=== PATIENT | female | born 1955 | race Caucasian/White ===

== ENCOUNTER → 2024-02-04 | Outpatient (CLI) | payer MEDICARE, MEDICAID, SELFPAY ==
--- NOTE | 2024-02-04 15:23 | RAD_ITS ---
EXAM: XR LUMBOSACRAL SPINE, 2 OR 3 VIEWS CLINICAL INDICATION: HIP PAIN TECHNIQUE: Frontal and lateral views of the lumbar spine and sacrum. COMPARISON: No relevant prior studies available. FINDINGS: VERTEBRAE: There is osteophyte formation from L3 through L5. Preserved vertebral body height. No fracture. No spondylolisthesis. Preservation of the normal lumbar lordosis. No significant facet arthropathy. DISC SPACES: There is disc space narrowing at L4-5 and L5-S1. GASTROINTESTINAL TRACT: Unremarkable as visualized. Included bowel gas pattern is non-obstructive. OTHER FINDINGS: There are calcifications overlying the pelvis which may represent calcified fibroids. RAD/Lumbar Spine 2 or 3 Views IMPRESSION: 1. No acute osseous abnormalities. 2. Degenerative changes with disc space narrowing and osteophyte formation. Electronically Signed: Ozzie Caceres MD at 20:39 EDT ,
--- NOTE | 2024-02-04 15:23 | RAD_ITS ---
EXAM: XR LEFT KNEE COMPLETE, 4 OR MORE VIEWS CLINICAL INDICATION: LEFT KNEE PAIN TECHNIQUE: Four or more views of the left knee. COMPARISON: No relevant prior studies available. FINDINGS: BONES/JOINTS: There is loss of the medial knee joint space. No acute fracture. No subluxation. Normal alignment. No sclerotic or destructive changes observed. SOFT TISSUES: Soft tissues are unremarkable. No soft tissue swelling or gas. No radiopaque foreign body. RAD/Knee 4 or More Views IMPRESSION: Moderate to severe degenerative changes with narrowing of the medial knee joint. There are no acute osseous abnormalities. Electronically Signed: Ozzie Caceres MD at 16:14 EDT ,
--- NOTE | 2024-02-04 15:23 | RAD_ITS ---
EXAM: XR BILATERAL HIPS WITH PELVIS WHEN PERFORMED, 2 VIEWS CLINICAL INDICATION: HIP PAIN TECHNIQUE: Frontal view of the bilateral hips with pelvis when performed. COMPARISON: No relevant prior studies available. FINDINGS: BONES/JOINTS: Unremarkable. No displaced fracture. No destructive or sclerotic lesions. Note that overlapping bowel shadows may however obscure fine detail. Sacroiliac joint is unremarkable. No widening of the pubic symphysis. The articular structures are unremarkable. SOFT TISSUES: Unremarkable. No soft tissue swelling or gas. RAD/Hips B/L min 2 views w/ Pelvis IMPRESSION: No evidence of displaced pelvic or hip fracture. Electronically Signed: Ozzie Caceres MD at 20:40 EDT ,
== END | disposition home or self-care (01) ==
PROVIDERS: PCP Family Medicine; Referring Provider Family Medicine; Visit Provider Family Medicine
DX: M25.562 Pain in left knee (principal); M25.551 Pain in right hip; M25.552 Pain in left hip
CPT/HCPCS: 72100; 73521; 73564

== ENCOUNTER 2025-08-31 00:57 | Inpatient (IN) | payer MEDICARE, SELFPAY ==
[2025-08-30] MEDS: HEPARIN/D5w 25,000 UNITS 25,000 UNITS/250 ML IV.SOLN. 10 UNITS CONT INF (23:30)
[2025-08-30 23:45] VITALS: BP 144/79; PULSE 69; RESP 18; TEMP 36.6; O2SAT 100; BMI 35.9
[2025-08-31] VITALS: O2SAT 100
--- NOTE | 2025-08-31 00:37 | EKG12_ITS ---
Test Reason : admission EKG
--- NOTE | 2025-08-31 01:00 | PCM.HP.STD ---
[facility] - General General Date of Admission: 08/31/25 HPI Narrative IRVIN HAMILTON, is a 70 F who presents went outside hospital with chest pain. She had initial troponin of 78 that anderson to 200. She does have a history of A-fib but is rate controlled. The chest pain is exertional with radiation to her jaw and she has an old him manager that she has not seen in a while and she requested to be transferred to this hospital. She states that her jaw pain intermittently started a couple months ago and then her chest pain started with a month ago. The reason why she presented to the outside hospital today was because usually whenever she would rest the chest pain would get better however this time it did not for at least an hour until she mated to the emergency room. When the chest pain started this time it also brought on the jaw pain and a little bit of arm pain. EKG showed nonspecific changes and her heart rate at the outside hospital was 94 bpm while in A-fib. She is on anticoagulation, this does appear to be Xarelto and her last dose was on 08/30/2025 at around 6 PM. She was started on a heparin drip and accepted to this facility and transferred. [facility] Medical History (Updated 08/31/25 @ 01:[address] Amaury Madsen MD) Hernia Disease of appendix, unspecified Peripheral arterial disease Gall stones Diabetes Osteoarthritis Atrial fibrillation Polycystic kidney disease Hypertension Thrombosis History of nephrolithotomy with removal of calculi Stroke Physical exam, pre-employment Home Medications ?Medication ?Instructions ?Recorded ?Last Taken ?Type Bacillus coagulans 250 million 2 tab PO .Q24 02/21/24 08/30/25 History cell chewable tablet (Digestive Advantage Probiotic Gummy) allopurinol 100 mg tablet 100 mg PO QDAY 02/21/24 08/30/25 History aspirin 81 mg tablet 81 mg PO DAILY 02/21/24 08/30/25 18:00 History cranberry 500 mg capsule 500 mg PO DAILY 02/21/24 08/29/25 18:00 History hydrochlorothiazide 25 mg tablet 25 mg PO QDAY 02/21/24 08/30/25 18:00 History losartan 100 mg tablet 50 mg PO QDAY 02/21/24 08/30/25 18:00 History atenolol 25 mg tablet 25 mg PO Q24H 08/30/25 08/30/25 18:00 History rivaroxaban 15 mg tablet (Xarelto) 15 mg PO DAILY 08/30/25 Unknown History Allergy/AdvReac Type Severity Reaction Status Date / Time No Known Allergies Allergy Unverified 02/21/24 14:11 Family History (Updated 02/21/24 @ 14:19 by Zulay Bustillos MA) Mother Hypertension Father Hypertension Arthritis Myocardial infarction Surgical History (Updated 08/31/25 @ 02:[address] Amaury Madsen MD) H/O lithotripsy Social History (Updated 02/21/24 @ 14:18 by Zulay Bustillos MA) household members: spouse Smoking Status: Never smoker alcohol intake: never ROS Constitutional Constitutional: Denies chills, fatigue, fever(s) or malaise Eyes Eyes: Denies blurry vision ENT HEENT: Denies headache(s) or nasal discharge Cardiovascular Cardiovascular: Reports chest pain; Denies dyspnea on exertion or syncope Respiratory/Chest Respiratory/Chest: Denies cough, shortness of breath at rest or shortness of breath with exertion Gastrointestinal Gastrointestinal: Denies constipation, diarrhea, nausea or vomiting Genitourinary Genitourinary: Denies dysuria Neurologic Neurologic: Denies focal weakness, numbness or tremor(s) Psychiatric Psychiatric: Denies anxiety or depression Vital Signs Vital Signs Vital Signs: 08/30/25 23:45 08/31/25 00:00 Temperature 97.9 F Temperature Source Oral Pulse Rate 69 Respiratory Rate 18 Respiratory Effort Normal Non-Labored Respiratory Depth Normal Respiratory Pattern Normal Blood Pressure 144/79 H Blood Pressure Mean 100 Blood Pressure Source Monitor Blood Pressure Position Sitting Blood Pressure Location Right Forearm Pulse Ox 100 100 Oxygen Delivery Method Room Air Room Air Weight Weight: 215 lb 9.793 oz Body Mass Index (BMI) 35.9 Physical Exam Narrative General: Alert, Oriented x3, Cooperative, No apparent distress HEENT: Atraumatic, PERRLA, EOMI, Normocephalic Oral: Moist Mucosa Neck: Supple, No JVD Lungs: Diminished, Normal air movement, No rhonchi, No wheeze, No rales Cardiovascular: Regular rate, Regular Rhythm, Normal S1, Normal S2, No murmurs Abdomen: Soft, Non Tender, Non-Distended, No Hepato-splenomegaly Extremities: No edema, Capillary Refill Less than 3 Seconds Skin: No rashes, No breakdown Musculoskeletal: No Tenderness to Palpation of Joints or Extremities Neurological: No focal neurological deficits, moves all extremities Psych/Mental Status: Normal Affect, Appropriate Results Lab / Micro Data 08/31/25 01:32 Assessment & Plan Assessment/Plan (1) NSTEMI, initial episode of care: PLAN: Plan 1. Non-STEMI/essential HTN/A-fib ? Can resume her home blood pressure medications, her third troponin here at this facility was 349 ? Continue with aspirin ? Placed on a heparin drip ? I did discuss the case with cardiology they will see her in the morning the plan for heart cath in the afternoon ? Hold her Xarelto 2. Gout ? Stable ? Continue with allopurinol 3. Supratherapeutic INR ? Unclear as to the etiology is 3.1 ? Will obtain LFTs DVT: Heparin drip 75 minutes was spent on direct patient care, including documentation as well as chart review and collaboration with colleagues Charges/Coding Visit Charges Inpatient E&M: 45590 Init Hosp L3
[2025-08-31 01:44] LABS: Hematocrit 34.8 % (37-47); Hemoglobin 11.5 g/dL (12.0-15.0); Immature Granulocytes Count 0.040 X10^3/uL (0.0-0.0); Mean Corp Hgb Conc 33.0 g/dL (32-36); Mean Corpuscular Volume 88.5 fL (81-99); Mean Platelet Vol. 10.5 fl (6.2-12.0); NRBC Flagged by Analyzer 0 % (0-5); Platelet Count 256 K/mm3 (150-450); RBC Distribution Width CV 12.9 % (11.6-14.6); RBC Distribution Width SD 42.0 fl (35.1-43.9); Red Blood Count 3.93 M/mm3 (4.2-5.4); White Blood Count 10.3 K/mm3 (4.4-11.0)
[2025-08-31 02:03] LABS: Prothrombin Time (Protime)PT. 32.5 SECONDS (11.7-14.9)
[2025-08-31 02:26] LABS: Troponin T High Sensitivity 349 ng/L (<=14)
[2025-08-31 02:34] LABS: Partial Thromboplast Time > 200.0 Seconds (24.1-36.2)
[2025-08-31 04:45] LABS: Hematocrit 34.9 % (37-47); Hemoglobin 11.5 g/dL (12.0-15.0); Immature Granulocytes Count 0.030 X10^3/uL (0.0-0.0); Mean Corp Hgb Conc 33.0 g/dL (32-36); Mean Corpuscular Volume 88.1 fL (81-99); Mean Platelet Vol. 11.0 fl (6.2-12.0); NRBC Flagged by Analyzer 0 % (0-5); Platelet Count 244 K/mm3 (150-450); RBC Distribution Width CV 12.8 % (11.6-14.6); RBC Distribution Width SD 41.4 fl (35.1-43.9); Red Blood Count 3.96 M/mm3 (4.2-5.4); White Blood Count 8.7 K/mm3 (4.4-11.0)
[2025-08-31 05:05] LABS: AST(SGOT) 48 U/L (<=31); Alanine Aminotransfer ALT/SGPT 11 U/L (<=34); Albumin, Serum 3.7 g/dL (3.4-4.8); Alkaline Phosphatase 80 U/L (35-104); Anion Gap 13 (5-15); BUN 52 mg/dL (4-19); BUN/Creat Ratio 17.5 RATIO (10-20); Calcium,Total 9.3 mg/dL (7.6-11.0); Carbon Dioxide 20.7 mmol/L (21.0-32.0); Chloride 105 mmol/L (98-108); Estimated Creatinine Clearance 21.20 ml/min (50-250); Globulin 2.9 g/dL (2.2-4.2); Glucose 118 mg/dL (70-99); Potassium 3.9 mmol/L (3.3-5.1)
[2025-08-31 06:00] VITALS: BP 137/68; PULSE 57; RESP 18; TEMP 36.5; O2SAT 100
--- NOTE | 2025-08-31 08:07 | ECHOD_ITS ---
Reason For Study ECHO/Echo Complete
--- NOTE | 2025-08-31 08:12 | NURSING ---
This RN called Dr. Russell through the hospital anodizing line operator and left voicemail asking what time he would like patient's heparin drip stopped for heart cath.
--- NOTE | 2025-08-31 08:29 | PCM.CONS.C ---
Assessment & Plan Assessment/Plan (1) NSTEMI, initial episode of care: PLAN: - Suspect Type 1 NSTEMI: Patient with cardiac chest pain, HST: 78-->200-->349, ECG with ST depressions and T wave inversions - Patient is currently hemodynamically stable, satting well on room air, and without signs of overt heart failure Plan - In light of significant CKD, consult nephrology to help determine optimal revascularization strategy as appropriate - Continue aspirin 81 mg daily and continue IV heparin ACS protocol - Continue to hold Xarelto - Start Crestor 20 mg daily if no contraindications - Continue previously prescribed atenolol 25 mg daily and losartan 50 mg daily - Anticipate up titration of medications above pending revascularization plan -Hold P2Y12i therapy for now until revascularization plan is determined - Remain mindful that patient will require DOAC on discharge due to atrial fibrillation, clopidogrel is the preferred agent when therapy is deemed appropriate. - Order surface echocardiogram - Cardiac rehabilitation referral on discharge - Please alert cardiology team with any development of chest pain, signs of heart failure, or hemodynamic instability (2) Afib: PLAN: - [id number]: ~6, suspect at least persistent atrial fibrillation - Currently on rate control-strategy with atenolol 25 mg daily and Xarelto 15 mg daily --Patient is hemodynamically stable, asymptomatic, and rate controlled Plan - Continue to hold DOAC and continue plan as above (3) Polycystic kidney disease: PLAN: - Creatinine currently 2.9; patient at bedside is aware of her chronic CKD, and the risks associated with contrast - Risk benefit/discussion to be had with patient, nephrology, and interventional team for consideration of invasive approach versus conservative management - Avoid additional nephrotoxic agents (4) Hypertension: PLAN: - Plan as above, goal less than 130/80 on discharge (5) Elevated INR: PLAN: - Etiology unclear at this time, hepatic workup per primary team - Patient has tolerated Xarelto therapy, she denies significant bleeding history HPI Consult Data Date of Consult: 08/31/25 HPI Narrative Reason for Consultation: ACS HPI Narrative: IRVIN HAMILTON, is a 70 F who is transferred to [facility] for management of NSTEMI. Patient has a documented past medical history of atrial fibrillation, polycystic kidney disease, hypertension, prior stroke. Patient admits that within the last ~ 2 months, she has experienced worsening exertional chest pain. Prior to this, she had no exertional limiting symptoms. Over the past week or so, its gotten to be so severe that just ambulating around the house will trigger chest pain and jaw pain. Typically, the pain resolved with rest. She experienced a sudden episode of chest pain, jaw pain, and arm pain lasting roughly an hour, which prompted her to present to outside hospital. High-sensitivity troponin 78--> 200, ECG remarkable for ischemic changes. Patient then request to be transferred to [facility]. Blood pressure ~135/75, heart rate~60. Patient is satting well on room air. Labs remarkable for INR: 3.1, high-sensitivity troponin: 349, creatinine 2.94. Patient seen at bedside, resting comfortably his chest pain-free and asymptomatic. [facility] Medical History (Updated 08/31/25 @ 09:[address] Carlos Fuentes DO) Hernia Disease of appendix, unspecified Peripheral arterial disease Gall stones Diabetes Osteoarthritis Atrial fibrillation Polycystic kidney disease Hypertension Thrombosis History of nephrolithotomy with removal of calculi Stroke Physical exam, pre-employment Home Medications ?Medication ?Instructions ?Recorded ?Last Taken ?Type Bacillus coagulans 250 million 2 tab PO .Q24 02/21/24 08/30/25 History cell chewable tablet (Digestive Advantage Probiotic Gummy) allopurinol 100 mg tablet 100 mg PO QDAY 02/21/24 08/30/25 History aspirin 81 mg tablet 81 mg PO DAILY 02/21/24 08/30/25 18:00 History cranberry 500 mg capsule 500 mg PO DAILY 02/21/24 08/29/25 18:00 History hydrochlorothiazide 25 mg tablet 25 mg PO QDAY 02/21/24 08/30/25 18:00 History losartan 100 mg tablet 50 mg PO QDAY 02/21/24 08/30/25 18:00 History atenolol 25 mg tablet 25 mg PO Q24H 08/30/25 08/30/25 18:00 History rivaroxaban 15 mg tablet (Xarelto) 15 mg PO DAILY 08/30/25 Unknown History Allergy/AdvReac Type Severity Reaction Status Date / Time No Known Allergies Allergy Unverified 02/21/24 14:11 Family History (Updated 02/21/24 @ 14:19 by Zulay Bustillos MA) Mother Hypertension Father Hypertension Arthritis Myocardial infarction Surgical History (Updated 11/07/25 @ 02:[address] Amaury Madsen MD) H/O lithotripsy Social History (Updated 02/21/24 @ 14:18 by Zulay Bustillos MA) household members: spouse Smoking Status: Never smoker alcohol intake: never ROS ROS Narrative 14 point review of systems reviewed, and negative unless specified in HPI above Physical Exam Narrative ?Gen: A&Ox3, NAD ?HEENT: Normocephalic/Atraumatic, MMM ?Neck: Supple, no JVD ?Pulm: Normal work of breathing, CTA bilaterally with no wheezes or crackles ?CV: IRRR, normal S1/S2, no m/r/g ?Abd: Soft, NT/ND ?Extr: Warm to touch, no LE edema, distal pulses intact and symmetric in upper and lower extremities ?Neuro: No gross focal deficits, normal speech ?Psych: Normal affect, answers questions appropriately Objective Data Vital Signs: Vital Signs Temp Pulse Resp BP Pulse Ox O2 Del Method 97.7 F L 57 L 18 137/68 H 100 Room Air 08/31/25 06:00 08/31/25 06:00 08/31/25 06:00 08/31/25 06:00 08/31/25 06:00 08/31/25 07:45 Oxygen Delivery Method Room Air Weight: 215 lb 9.793 oz Body Mass Index (BMI) 35.9 Intake & Output: Intake and Output for Last 24 Hours 08/29/25 08/30/25 08/31/25 23:59 23:59 23:59 Intake Total 29.5 / 29.5 Output Total 0 / 0 Balance 29.5 / 29.5 Lab / Micro Data 08/31/25 04:15 08/31/25 04:15 Labs: Laboratory Results - last 24 hr 08/31/25 01:32: WBC 10.3, RBC 3.93 L, Hgb 11.5 L, Hct 34.8 L, MCV 88.5, MCH 29.3, MCHC 33.0, RDW Std Deviation 42.0, RDW Coeff of Vladimir 12.9, Plt Count 256, MPV 10.5, Immature Gran % (Auto) 0.400, Neut % (Auto) 72.1 H, Lymph % (Auto) 21.2, [place] % (Auto) 5.2, Eos % (Auto) 0.7, Baso % (Auto) 0.4, Absolute Neuts (auto) 7.4, Absolute Lymphs (auto) 2.19, Nucleated RBC % 0, PT 32.5 H, INR 3.1, APTT > 200.0 H*, Troponin T High Sens 349 H* 08/31/25 04:15: WBC 8.7, RBC 3.96 L, Hgb 11.5 L, Hct 34.9 L, MCV 88.1, MCH 29.0, MCHC 33.0, RDW Std Deviation 41.4, RDW Coeff of Vladimir 12.8, Plt Count 244, MPV 11.0, Immature Gran % (Auto) 0.300, Neut % (Auto) 66.3, Lymph % (Auto) 25.2, [place] % (Auto) 6.2, Eos % (Auto) 1.4, Baso % (Auto) 0.6, Absolute Neuts (auto) 5.8, Absolute Lymphs (auto) 2.19, Nucleated RBC % 0, Sodium 139, Potassium 3.9, Chloride 105, Carbon Dioxide 20.7 L, Anion Gap 13, BUN 52 H, Creatinine 2.94 H, Estim Creat Clear Calc 21.20 L, Est GFR (MDRD) Non-Af 17 L, BUN/Creatinine Ratio 17.5, Glucose 118 H, Calcium 9.3, Total Bilirubin 0.51, AST 48 H, ALT 11, Alkaline Phosphatase 80, Total Protein 6.6, Albumin 3.7, Globulin 2.9, Albumin/Globulin Ratio 1.3 Cardiology Labs/Tests 08/31/25 01:32: WBC 10.3, RBC 3.93 L, Hgb 11.5 L, Hct 34.8 L, MCV 88.5, MCH 29.3, MCHC 33.0, Plt Count 256, MPV 10.5, Immature Gran % (Auto) 0.400, Neut % (Auto) 72.1 H, Lymph % (Auto) 21.2, [place] % (Auto) 5.2, Eos % (Auto) 0.7, Baso % (Auto) 0.4, Absolute Neuts (auto) 7.4, Nucleated RBC % 0, PT 32.5 H, INR 3.1, APTT > 200.0 H* 08/31/25 04:15: WBC 8.7, RBC 3.96 L, Hgb 11.5 L, Hct 34.9 L, MCV 88.1, MCH 29.0, MCHC 33.0, Plt Count 244, MPV 11.0, Immature Gran % (Auto) 0.300, Neut % (Auto) 66.3, Lymph % (Auto) 25.2, [place] % (Auto) 6.2, Eos % (Auto) 1.4, Baso % (Auto) 0.6, Absolute Neuts (auto) 5.8, Nucleated RBC % 0, Sodium 139, Potassium 3.9, Chloride 105, Carbon Dioxide 20.7 L, Anion Gap 13, BUN 52 H, Creatinine 2.94 H, Est GFR (MDRD) Non-Af 17 L, BUN/Creatinine Ratio 17.5, Glucose 118 H, Calcium 9.3, Total Bilirubin 0.51 Rhythm: EKG: ECHO: Stress Test: Cardiac Cath: PCI: CT Surgery: Holter monitor: EPS: PPM: CXR: Chest CT Scan: WILY Risk Score for UA/STEMI Assesmment (YES = 1) Risk Stratification Applicable: Yes Age > or = 65: Yes > or = 3 CAD risk factors (HTN, Hypercholesterolemia, Diabetes, family hx, current smoker): Yes Known CAD (Stenosis > or = 50%): No ASA used in past 7 days: Yes Severe angina (> or = 2 episodes in 24 hrs): Yes EKG ST change > or = 0.5mm: Yes Positive cardiac markers: Yes Score WILY Risk Score of mortality/ recurrent ischemic event over the next 14 days: 6-7 = 40.9% - HIGH RISK
[2025-08-31 08:42] LABS: Partial Thromboplast Time 71.4 Seconds (24.1-36.2)
--- NOTE | 2025-08-31 10:57 | PCM.PROGNOTE ---
Subjective Subjective Patient seen and examined with her nurse by her bedside. She denied any shortness of breath, chest pain, palpitations, dizziness, nausea, vomiting or any other symptoms. Review of systems is otherwise negative. She is on heparin drip. Cardiology requests nephrology consult o/a of her elevated Cr. She has remained hemodynamically stable. Objective Data Objective Data Vital Signs: Vital Signs Temp Pulse Resp BP Pulse Ox O2 Del Method 97.7 F L 57 L 18 137/68 H 100 Room Air 08/31/25 06:00 08/31/25 06:00 08/31/25 06:00 08/31/25 06:00 08/31/25 06:00 08/31/25 07:45 Oxygen Delivery Method Room Air Weight: 215 lb 9.793 oz Body Mass Index (BMI) 35.9 Intake & Output: Intake and Output for Last 24 Hours 08/29/25 08/30/25 08/31/25 23:59 23:59 23:59 Intake Total 56.92 / 56.92 Output Total 0 / 0 Balance 56.92 / 56.92 Lab / Micro Data 08/31/25 04:15 08/31/25 04:15 Labs: Laboratory Results - last 24 hr 08/31/25 01:32: WBC 10.3, RBC 3.93 L, Hgb 11.5 L, Hct 34.8 L, MCV 88.5, MCH 29.3, MCHC 33.0, RDW Std Deviation 42.0, RDW Coeff of Vladimir 12.9, Plt Count 256, MPV 10.5, Immature Gran % (Auto) 0.400, Neut % (Auto) 72.1 H, Lymph % (Auto) 21.2, [place] % (Auto) 5.2, Eos % (Auto) 0.7, Baso % (Auto) 0.4, Absolute Neuts (auto) 7.4, Absolute Lymphs (auto) 2.19, Nucleated RBC % 0, PT 32.5 H, INR 3.1, APTT > 200.0 H*, Troponin T High Sens 349 H* 08/31/25 04:15: WBC 8.7, RBC 3.96 L, Hgb 11.5 L, Hct 34.9 L, MCV 88.1, MCH 29.0, MCHC 33.0, RDW Std Deviation 41.4, RDW Coeff of Vladimir 12.8, Plt Count 244, MPV 11.0, Immature Gran % (Auto) 0.300, Neut % (Auto) 66.3, Lymph % (Auto) 25.2, [place] % (Auto) 6.2, Eos % (Auto) 1.4, Baso % (Auto) 0.6, Absolute Neuts (auto) 5.8, Absolute Lymphs (auto) 2.19, Nucleated RBC % 0, Sodium 139, Potassium 3.9, Chloride 105, Carbon Dioxide 20.7 L, Anion Gap 13, BUN 52 H, Creatinine 2.94 H, Estim Creat Clear Calc 21.20 L, Est GFR (MDRD) Non-Af 17 L, BUN/Creatinine Ratio 17.5, Glucose 118 H, Calcium 9.3, Total Bilirubin 0.51, AST 48 H, ALT 11, Alkaline Phosphatase 80, Total Protein 6.6, Albumin 3.7, Globulin 2.9, Albumin/Globulin Ratio 1.3 08/31/25 08:20: APTT 71.4 H Physical Exam Const alert, oriented x3, no apparent distress and well nourished General Appearance: cooperative HEENT normocephalic, head/scalp atraumatic and moist oral mucous membranes Eyes EOMs intact bilaterally Neck supple and no JVD Lymph Lymphatic: no lymphedema noted Resp normal respiratory effort, normal air movement and clear to auscultation bilaterally Cardio regular rate, regular rhythm, S1 normal heart sound, S2 normal heart sound and no murmurs GI normal to inspection, nondistended, normoactive bowel sounds, soft to palpation, non-tender and non-distended Extremity normal capillary refill, no clubbing, cyanosis or edema and no calf tenderness General Extremity: no tenderness to palpation of joints or extremities Skin General Skin Exam: no breakdown Neuro no focal motor deficits Motor Exam: strength 5/5 throughout and general weakness Psych thought process normal, cooperative and affect normal Appearance: appropriate Assessment & Plan Assessment/Plan (1) NSTEMI, initial episode of care: PLAN: Plan #Nonstemi admitted as a transfer from outside hospital o/a of elevated troponins troponins elevated adn third troponin was up at 349 on heparin drip as well as aspirin and high intensity statin INR is 3.1;I discussed with cardiology and they want the heparin drip continued even with INR being within therapeutic level cardiology requests nephrology consult o/a of the elevated Cr, before deciding on cath. 2D echo ordered #CKD, stage unclear patient says she has a history of Polycystic kidney disease and has been told her kidney function is 20. She follows with a chili pepper grinder, Dr Bell, in [place] will request records from [facility] to get kidney function baseline. Nephrology consulted #History of gout: on allopurinol #Benign essential hypertension #Afib: xarelto on hold as she is on eliquis #Supratherapeutic INR: INR is 3.1. Will monitor for now. May be due to xarelto #DVT prohylaxis: on heparin drip Code staus: full code Charges/Coding Visit Charges Inpatient E&M: 18404 Subs Hosp L2
[2025-08-31 11:49] VITALS: BP 121/70; PULSE 67; RESP 18; TEMP 36.3; O2SAT 99
--- NOTE | 2025-08-31 15:10 | PCM.CONS.R ---
Assessment & Plan Assessment/Plan (1) Chronic kidney disease, stage 4 (severe): PLAN: Requested previous records from primary care physician office. Her creatinine was about 2.4-2.5 as of March 2025. Etiology is apparently polycystic kidney disease. She follows with nephrology at [facility]. Current creatinine of 2.9 is not too different from her baseline. History of kidney stones, no recent symptoms. No hematuria, flank pain, dysuria, fever, chills. Needs coronary angiogram. She is aware of potential contrast nephropathy. Even though the chances of complete renal failure are low, risk is not 0. She understands. As well as prophylaxis, would give her 0.9 normal saline at 75 cc an hour for 12 hours before and 6 hours after angiogram. All questions answered. Discussed with hospitalist. HPI Consult Data Date of Consult: 08/31/25 HPI Narrative Reason for Consultation: CKD HPI Narrative: IRVIN HAMILTON, is a 70 F who presents To the hospital with chest pain, shortness of breath. Nephrology on consultation in view of CKD. It seems she has known history of polycystic kidney disease, no family history. Follows with nephrology at [facility]. Associated kidney stones. Recently has not had any kidney stones. Presented with above complaints, found to have non-ST elevation PR. Currently denies any urinary complaints. [facility] Medical History (Updated 08/31/25 @ 15:[address] Erik Almanza MD) Hernia Disease of appendix, unspecified Peripheral arterial disease Gall stones Diabetes Osteoarthritis Atrial fibrillation Polycystic kidney disease Hypertension Thrombosis History of nephrolithotomy with removal of calculi Stroke Physical exam, pre-employment Home Medications ?Medication ?Instructions ?Recorded ?Last Taken ?Type Bacillus coagulans 250 million 2 tab PO .Q24 02/21/24 08/30/25 History cell chewable tablet (Digestive Advantage Probiotic Gummy) allopurinol 100 mg tablet 100 mg PO QDAY 02/21/24 08/30/25 History aspirin 81 mg tablet 81 mg PO DAILY 02/21/24 08/30/25 18:00 History cranberry 500 mg capsule 500 mg PO DAILY 02/21/24 08/29/25 18:00 History hydrochlorothiazide 25 mg tablet 25 mg PO QDAY 02/21/24 08/30/25 18:00 History losartan 100 mg tablet 50 mg PO QDAY 02/21/24 08/30/25 18:00 History atenolol 25 mg tablet 25 mg PO Q24H 08/30/25 08/30/25 18:00 History rivaroxaban 15 mg tablet (Xarelto) 15 mg PO DAILY 08/30/25 Unknown History Allergy/AdvReac Type Severity Reaction Status Date / Time No Known Allergies Allergy Unverified 02/21/24 14:11 Family History (Updated 02/21/24 @ 14:19 by Zulay Bustillos MA) Mother Hypertension Father Hypertension Arthritis Myocardial infarction Surgical History (Updated 08/31/25 @ 02:[address] Amaury Madsen MD) H/O lithotripsy Social History (Updated 02/21/24 @ 14:18 by Zulay Bustillos MA) household members: spouse Smoking Status: Never smoker alcohol intake: never ROS ROS Narrative negative except above Physical Exam Narrative Alert awake oriented x 3 no obvious distress no pallor no icterus no JVD s1s2 no murmurs lungs clear abdomen soft no organomegaly Lab / Micro Data 08/31/25 04:15 08/31/25 04:15 Labs: Laboratory Results - last 24 hr 08/31/25 01:32: WBC 10.3, RBC 3.93 L, Hgb 11.5 L, Hct 34.8 L, MCV 88.5, MCH 29.3, MCHC 33.0, RDW Std Deviation 42.0, RDW Coeff of Vladimir 12.9, Plt Count 256, MPV 10.5, Immature Gran % (Auto) 0.400, Neut % (Auto) 72.1 H, Lymph % (Auto) 21.2, [place] % (Auto) 5.2, Eos % (Auto) 0.7, Baso % (Auto) 0.4, Absolute Neuts (auto) 7.4, Absolute Lymphs (auto) 2.19, Nucleated RBC % 0, PT 32.5 H, INR 3.1, APTT > 200.0 H*, Troponin T High Sens 349 H* 08/31/25 04:15: WBC 8.7, RBC 3.96 L, Hgb 11.5 L, Hct 34.9 L, MCV 88.1, MCH 29.0, MCHC 33.0, RDW Std Deviation 41.4, RDW Coeff of Vladimir 12.8, Plt Count 244, MPV 11.0, Immature Gran % (Auto) 0.300, Neut % (Auto) 66.3, Lymph % (Auto) 25.2, [place] % (Auto) 6.2, Eos % (Auto) 1.4, Baso % (Auto) 0.6, Absolute Neuts (auto) 5.8, Absolute Lymphs (auto) 2.19, Nucleated RBC % 0, Sodium 139, Potassium 3.9, Chloride 105, Carbon Dioxide 20.7 L, Anion Gap 13, BUN 52 H, Creatinine 2.94 H, Estim Creat Clear Calc 21.20 L, Est GFR (MDRD) Non-Af 17 L, BUN/Creatinine Ratio 17.5, Glucose 118 H, Calcium 9.3, Total Bilirubin 0.51, AST 48 H, ALT 11, Alkaline Phosphatase 80, Total Protein 6.6, Albumin 3.7, Globulin 2.9, Albumin/Globulin Ratio 1.3 08/31/25 08:20: APTT 71.4 H
--- NOTE | 2025-08-31 15:18 | CASEMGMT ---
RN?CM?ASSESSMENT ? RN?CM?to room to meet with patient for initial transition planning/care coordination?assessment.?RN?CM?introduced self and role at [facility].? Pt voices understanding and consents to?assessment?at this time.? Pt resting in bed in no distress at this time. Family in room visiting and pt gave permission for them to be present during assessment. Pt is A/O at this time and answers all questions appropriately.?? Care providers, pharmacy, and demographics verified/updated at this time. ? Strata: 1 PCP: Dr Ortiz in [place] Specialists: Dr Bell-tie mill operator @ [facility]. Pt sees assistant golf coach @ [facility] in [place] for A-Fib and vascular surgeon @ [facility]. Preferred Pharmacy: [facility] in [place]. Insurance: [employer]E [employer]. Medicaid was listed in [employer]. Pt states she no longer has Medicaid. Call placed to registration who verified pt does not have Medicaid and they state will remove it. Prescription Benefit:?Yes. Pt is on Xarelto @ home and states has sufficient supply of this medication as well as other medications she is on. Living Will/HPOA:? States does not have LW or HCPOA .? She is not interested in completing at this time. She has been provided information on advanced directives & made aware SW can be contacted as an out-pt and make appt in the future if desired. LNOK: Pt has 2 children. One daughter is Kash. Living Arrangements: Pt states she lives with somebody but did elaborate on who. They live in a ranch-style home w/4-5 steps to enter through the back entrance, which is where pt state they usually go in d/t there is a flight of steps to get into home through the other entrance. Pt reports does have difficulty w/stairs and utilizes the handrails to navigate them. She is independent w/ADL's and IADL's and works part-time as a wrecker driver for [employer]. Transportation:?Pt states drives self and states no transportation concerns at this time.? DME: States has the following DME:?walker-- Pt states she just uses this in the morning when 1st getting up d/t stiff knees. Once she is up and moving, she puts the walker away. Pt states no need for further DME at this time.? HHC/SNF: No hx of either. Pt wishes to return home and states has no concerns with going home at time of discharge. ? PLAN:??Home ? Latasha BSN?RN?CM ? ?
--- NOTE | 2025-08-31 15:24 | CASEMGMT ---
Tertiary Insurance review for hospitals In-network with [facility] insurance if transfer is recommended is as follows: [facility], [facility], [place], [facility], [facility], [facility], , [place], [facility] and [place]. Tiffanie Terry, Discharge Planning Asst.
[2025-08-31 15:26] VITALS: BP 136/63; PULSE 72; RESP 18; TEMP 36.3; O2SAT 99
[2025-08-31 15:31] LABS: Partial Thromboplast Time 61.7 Seconds (24.1-36.2)
[2025-08-31 21:16] LABS: Partial Thromboplast Time 56.8 Seconds (24.1-36.2)
[2025-08-31 22:40] VITALS: BP 120/74; PULSE 73; RESP 16; TEMP 36.2; O2SAT 99
[2025-09-01 03:32] LABS: Hematocrit 33.6 % (37-47); Hemoglobin 11.3 g/dL (12.0-15.0); Immature Granulocytes Count 0.010 X10^3/uL (0.0-0.0); Mean Corp Hgb Conc 33.6 g/dL (32-36); Mean Corpuscular Volume 87.7 fL (81-99); Mean Platelet Vol. 11.1 fl (6.2-12.0); NRBC Flagged by Analyzer 0 % (0-5); Platelet Count 217 K/mm3 (150-450); RBC Distribution Width CV 13.0 % (11.6-14.6); RBC Distribution Width SD 41.2 fl (35.1-43.9); Red Blood Count 3.83 M/mm3 (4.2-5.4); White Blood Count 7.0 K/mm3 (4.4-11.0)
[2025-09-01 03:35] LABS: Partial Thromboplast Time 56.1 Seconds (24.1-36.2)
[2025-09-01 04:14] LABS: Anion Gap 13 (5-15); BUN 54 mg/dL (4-19); BUN/Creat Ratio 17.1 RATIO (10-20); Calcium,Total 8.8 mg/dL (7.6-11.0); Carbon Dioxide 21.3 mmol/L (21.0-32.0); Chloride 104 mmol/L (98-108); Estimated Creatinine Clearance 19.98 ml/min (50-250); Glucose 109 mg/dL (70-99); Potassium 3.7 mmol/L (3.3-5.1)
[2025-09-01 05:32] VITALS: BP 125/61; PULSE 79; RESP 16; TEMP 35.9; O2SAT 97
[2025-09-01 09:43] LABS: Partial Thromboplast Time 50.4 Seconds (24.1-36.2)
--- NOTE | 2025-09-01 09:44 | PCM.PN.CARD ---
Subjective Subjective Briefly, patient is 70-year female admitted for NSTEMI. Patient is hemodynamically stable, and chest pain-free. She feels her baseline this morning. HR:79, BP: 125/61, satting well on room air. 14 point review systems reviewed, and negative. Objective Data Vital Signs: Vital Signs Temp Pulse Resp BP Pulse Ox O2 Del Method 96.6 F L 79 16 125/61 H 97 Room Air 09/01/25 05:32 09/01/25 05:32 09/01/25 05:32 09/01/25 05:32 09/01/25 05:32 09/01/25 05:32 Oxygen Delivery Method Room Air Weight: 215 lb 9.793 oz Body Mass Index (BMI) 35.9 Intake & Output: Intake and Output for Last 24 Hours 08/30/25 08/31/25 09/01/25 23:59 23:59 23:59 Intake Total 456.92 / 1106.92 1050 / 1050 Output Total 0 / 0 Balance 456.92 / 1106.92 1050 / 1050 Lab / Micro Data 09/01/25 03:10 09/01/25 03:10 Labs: Laboratory Results - last 24 hr 08/31/25 14:46: APTT 61.7 H 08/31/25 20:46: APTT 56.8 H 09/01/25 03:10: WBC 7.0, RBC 3.83 L, Hgb 11.3 L, Hct 33.6 L, MCV 87.7, MCH 29.5, MCHC 33.6, RDW Std Deviation 41.2, RDW Coeff of Vladimir 13.0, Plt Count 217, MPV 11.1, Immature Gran % (Auto) 0.100, Neut % (Auto) 54.0, Lymph % (Auto) 35.8, [place] % (Auto) 7.5, Eos % (Auto) 2.0, Baso % (Auto) 0.6, Absolute Neuts (auto) 3.8, Absolute Lymphs (auto) 2.49, Nucleated RBC % 0, APTT 56.1 H, Sodium 138, Potassium 3.7, Chloride 104, Carbon Dioxide 21.3, Anion Gap 13, BUN 54 H, Creatinine 3.12 H, Estim Creat Clear Calc 19.98 L, Est GFR (MDRD) Non-Af 16 L, BUN/Creatinine Ratio 17.1, Glucose 109 H, Calcium 8.8 09/01/25 09:10: APTT 50.4 H Cardiology Labs/Tests 08/31/25 14:46: APTT 61.7 H 08/31/25 20:46: APTT 56.8 H 09/01/25 03:10: WBC 7.0, RBC 3.83 L, Hgb 11.3 L, Hct 33.6 L, MCV 87.7, MCH 29.5, MCHC 33.6, Plt Count 217, MPV 11.1, Immature Gran % (Auto) 0.100, Neut % (Auto) 54.0, Lymph % (Auto) 35.8, [place] % (Auto) 7.5, Eos % (Auto) 2.0, Baso % (Auto) 0.6, Absolute Neuts (auto) 3.8, Nucleated RBC % 0, APTT 56.1 H, Sodium 138, Potassium 3.7, Chloride 104, Carbon Dioxide 21.3, Anion Gap 13, BUN 54 H, Creatinine 3.12 H, Est GFR (MDRD) Non-Af 16 L, BUN/Creatinine Ratio 17.1, Glucose 109 H, Calcium 8.8 09/01/25 09:10: APTT 50.4 H Rhythm: EKG: ECHO: Stress Test: Cardiac Cath: PCI: CT Surgery: Holter monitor: EPS: PPM: CXR: Chest CT Scan: Radiography Diagnostic Testing: Radiology Impression Echocardiogram 08/31/25 08:07 Interpretation Summary LV EF: 40-45%, variable in the setting of atrial fibrillation. Diastolic function is indeterminate due to arrhythmia. Wall motion abnormalities noted in the LAD distribution Mild mitral regurgitation Ordering Physician: Destiny [place] Referring Physician: Tootie Silveira Performed By: Kashif Carl RDCS Physical Exam Narrative Gen: A&Ox3, NAD ?HEENT: Normocephalic/Atraumatic, MMM ?Neck: Supple, no JVD ?Pulm: Normal work of breathing, CTA bilaterally with no wheezes or crackles ?CV: IRIR, normal S1/S2, no m/r/g ?Abd: Soft, NT/ND ?Extr: Warm to touch, no LE edema, distal pulses intact and symmetric in upper and lower extremities ?Neuro: No gross focal deficits, normal speech ?Psych: Normal affect, answers questions appropriately Assessment & Plan Assessment/Plan (1) NSTEMI, initial episode of care: PLAN: - Suspect Type 1 NSTEMI: Patient with cardiac chest pain, HST: 78-->200-->349, ECG with ST depressions and T wave inversions -Echocardiogram with EF: 40 to 45%, anterior hypokinesis. - Patient is currently hemodynamically stable, satting well on room air, and without signs of overt heart failure Plan -Appreciate nephrology recommendations; start now IV hydration with 0.9 normal saline @50cc/hr -Discussed with interventionalist, plan for coronary angiography tomorrow morning after hydration today and continued DOAC hold - Continue aspirin 81 mg daily and continue IV heparin ACS protocol - Continue to hold Xarelto - Start Crestor 20 mg daily if no contraindications - Continue previously prescribed atenolol 25 mg daily and losartan 50 mg daily - Anticipate up titration of medications above pending revascularization plan -Hold [id number] therapy for now until revascularization plan is determined - Remain mindful that patient will require DOAC on discharge due to atrial fibrillation, clopidogrel is the preferred agent when therapy is deemed appropriate. - Cardiac rehabilitation referral on discharge - Please alert cardiology team with any development of chest pain, signs of heart failure, or hemodynamic instability to prompt urgent intervention - Risks, benefits discussion had with patient at bedside after her discussion with nephrology. Patient is fully alert, oriented, and with capacity. Patient understands that there is risk for deteriorating kidney function, but also suspected ACS in large territory. She is agreeable at this time to proceed with coronary angiography and intervention as indicated. (2) Afib: PLAN: - [id number]: ~6, suspect at least persistent atrial fibrillation - Currently on rate control-strategy with atenolol 25 mg daily and Xarelto 15 mg daily --Patient is hemodynamically stable, asymptomatic, and rate controlled Plan - Continue to hold DOAC and continue plan as above - Anticipate switch to Eliquis on discharge in light of severe CKD (3) Polycystic kidney disease: PLAN: - Creatinine currently ~3; patient at bedside is aware of her chronic CKD, and the risks associated with contrast - Avoid additional nephrotoxic agents - IV hydration as above (4) Hypertension: PLAN: - Plan as above, goal less than 130/80 on discharge (5) Elevated INR: PLAN: - Etiology unclear at this time, hepatic workup per primary team - Patient has tolerated Xarelto therapy, she denies significant bleeding history
[2025-09-01 10:49] VITALS: BP 126/86; PULSE 69; RESP 16; TEMP 36.4; O2SAT 99
[2025-09-01] MEDS: 0.9% Normal Saline (1000mL) 1,000 ML 50 ML IV (11:09)
--- NOTE | 2025-09-01 11:46 | PCM.PROGNOTE ---
Subjective Subjective Patient seen and examined with her nurse by her bedside. She had no active complaints and had an uneventful night. Review of systems otherwise negative. She is for cardiac cath on Wednesday. Creatinine has trended up slightly to 3.12 today. Her chest pain has not recurred. Review of systems otherwise negative.She has remained hemodynamically stable. Objective Data Objective Data Vital Signs: Vital Signs Temp Pulse Resp BP Pulse Ox O2 Del Method 97.6 F L 69 16 126/86 H 99 Room Air 09/01/25 10:49 09/01/25 10:49 09/01/25 10:49 09/01/25 10:49 09/01/25 10:49 09/01/25 10:49 Oxygen Delivery Method Room Air Weight: 215 lb 9.793 oz Body Mass Index (BMI) 35.9 Intake & Output: Intake and Output for Last 24 Hours 08/30/25 08/31/25 09/01/25 23:59 23:59 23:59 Intake Total 456.92 / 1106.92 1202.8 / 1202.8 Output Total 0 / 0 Balance 456.92 / 1106.92 1202.8 / 1202.8 Lab / Micro Data 09/01/25 03:10 09/01/25 03:10 Labs: Laboratory Results - last 24 hr 08/31/25 14:46: APTT 61.7 H 08/31/25 20:46: APTT 56.8 H 09/01/25 03:10: WBC 7.0, RBC 3.83 L, Hgb 11.3 L, Hct 33.6 L, MCV 87.7, MCH 29.5, MCHC 33.6, RDW Std Deviation 41.2, RDW Coeff of Vladimir 13.0, Plt Count 217, MPV 11.1, Immature Gran % (Auto) 0.100, Neut % (Auto) 54.0, Lymph % (Auto) 35.8, [place] % (Auto) 7.5, Eos % (Auto) 2.0, Baso % (Auto) 0.6, Absolute Neuts (auto) 3.8, Absolute Lymphs (auto) 2.49, Nucleated RBC % 0, APTT 56.1 H, Sodium 138, Potassium 3.7, Chloride 104, Carbon Dioxide 21.3, Anion Gap 13, BUN 54 H, Creatinine 3.12 H, Estim Creat Clear Calc 19.98 L, Est GFR (MDRD) Non-Af 16 L, BUN/Creatinine Ratio 17.1, Glucose 109 H, Calcium 8.8 09/01/25 09:10: APTT 50.4 H Radiography Diagnostic Testing: Radiology Impression Echocardiogram 08/31/25 08:07 Interpretation Summary LV EF: 40-45%, variable in the setting of atrial fibrillation. Diastolic function is indeterminate due to arrhythmia. Wall motion abnormalities noted in the LAD distribution Mild mitral regurgitation Ordering Physician: Destiny [place] Referring Physician: Tootie Silveira Performed By: Kashif Carl RDCS Physical Exam Const alert, oriented x3, no apparent distress and well nourished General Appearance: cooperative HEENT normocephalic, head/scalp atraumatic and moist oral mucous membranes Eyes EOMs intact bilaterally Neck supple and no JVD Lymph Lymphatic: no lymphedema noted Resp normal respiratory effort, normal air movement and clear to auscultation bilaterally Cardio regular rate, regular rhythm, S1 normal heart sound, S2 normal heart sound and no murmurs GI normal to inspection, nondistended, normoactive bowel sounds, soft to palpation, non-tender and non-distended Extremity normal capillary refill, no clubbing, cyanosis or edema and no calf tenderness General Extremity: no tenderness to palpation of joints or extremities Skin General Skin Exam: no breakdown Neuro no focal motor deficits Motor Exam: strength 5/5 throughout and general weakness Psych thought process normal, cooperative and affect normal Appearance: appropriate Assessment & Plan Assessment/Plan (1) NSTEMI, initial episode of care: PLAN: Plan #Nonstemi admitted as a transfer from outside hospital o/a of elevated troponins troponins elevated adn third troponin was up at 349 on heparin drip as well as aspirin and high intensity statin For cardiac cath on Wednesday. 2D echo showed EF of 40 to 45% with anterior wall, basal mid anteroseptal and anterolateral jansen being hypokinetic and mild mitral regurgitation. I #CKD stage IV patient says she has a history of Polycystic kidney disease and has been told her kidney function is 20. She follows with a computational chemist, Dr Bell, in [place] will request records from [facility] to get kidney function baseline. Nephrology reviewed patient and stated that patient does have CKD Creatinine was 2.94 yesterday and is up to 3.12 today. Will monitor closely and attempt gentle hydration with IV fluid. Patient has been counseled about the risk of contrast induced nephropathy, and per nephro she is to get 55cc of NS for 12 hours before and 6 hours after angiogram #History of gout: on allopurinol #Benign essential hypertension #Afib: xarelto on hold as she is on eliquis #Supratherapeutic INR: INR was 3.1 yesterday. INR pending today #DVT prophylaxis: on heparin drip Code status: full code Charges/Coding Visit Charges Inpatient E&M: 49537 Subs Hosp L2
[2025-09-01 12:44] LABS: Prothrombin Time (Protime)PT. 17.6 SECONDS (11.7-14.9)
[2025-09-01 15:52] LABS: Partial Thromboplast Time 53.6 Seconds (24.1-36.2)
[2025-09-01 16:08] VITALS: BP 129/52; PULSE 68; RESP 16; TEMP 36.5; O2SAT 99
[2025-09-01] MEDS: HEPARIN/D5w 25,000 UNITS 25,000 UNITS/250 ML IV.SOLN. 8 UNITS CONT INF (16:12)
[2025-09-01 21:57] VITALS: BP 136/79; PULSE 73; RESP 16; TEMP 36.6; O2SAT 100
[2025-09-01 22:26] LABS: Partial Thromboplast Time 46.8 Seconds (24.1-36.2)
[2025-09-02] VITALS (14 sets, daily range): BP systolic 103–153; BP diastolic 51–97; PULSE 61–103; RESP 12–18; TEMP 36.4–36.7; O2SAT 95–100
--- NOTE | 2025-09-02 00:21 | EKG12_ITS ---
Test Reason : CP/SHOULDER PAIN
--- NOTE | 2025-09-02 00:58 | PCM.HOSP.N ---
Hospitalist Note Called by floor as pt complained of CP that radiated across her chest, jaw, and L arm. STAT EKG was done and cards was called. Dr. Fuentes ordered Nitro gtt and pt was already on heparin. Interventionalist was called by Dr. Fuentes for consideration for cath. PRN antiemetics ordered. Pain is improving even prior to nitro ggt was ordered.
[2025-09-02] MEDS: Nitroglycerin Infusion 250 ML 3 MG CONT INF (01:15)
--- NOTE | 2025-09-02 03:11 | PCIREPORT_ITS ---
PCI Cardiac Cath Report
--- NOTE | 2025-09-02 03:11 | PCI.CARDCATH ---
PCI Cardiac Cath Report PCI Report: Procedures #1 left heart catheterization #2 coronary angiography #3 left ventricular pressure measurement #4 PCI with drug-eluting stent to mid LAD #5 PCI with drug-eluting stent to mid RPDA of the right coronary artery Indication Non-STEMI with underlying diabetes mellitus, hypertension, dyslipidemia, chronic kidney disease stage IV however we attempted adequate hydration prior to the procedure to minimize the risk of contrast-induced nephropathy but unfortunately the patient developed dynamic EKG changes and high risk features for ACS at midnight necessitating urgent coronary angiography and intervention with ongoing pain. She also has underlying atrial fibrillation for which she is on Xarelto, the latter has been held for the last 24 hours. Consent Obtained from the patient after explaining all the risks involved including but not limited to , microinfarction, CVA, bleeding and she agreed to proceed with it. Conscious sedation Was performed by a licensed practitioner under my supervision, utilizing 1 mg of Versed 50 mcg of fentanyl Hemodynamics Systemic pressure 140/90, left ventricular end diastolic pressure was measured at 7 mmHg, no pressure gradient appreciated across aortic valve Contrast used, Isovue 115 cc Radiation 788 mgy Technique of the diagnostic procedure Using modified Seldinger technique, the right radial artery was accessed with a micropuncture kit, 6 Japanese sheath was placed over a guidewire, 1% Xylocaine given, using JL 3.5, JR4, the diagnostic procedure was performed with both catheters engage selectively in the left main and the right coronary artery. The JR4 was utilized to cross the aortic valve into the LV cavity for pressure measurements and then pullback to document the gradient across aortic valve. Angiographic findings Left Main?large-caliber vessel and patent Left anterior descending artery?large caliber vessel proximally with a hazy appearing 99% subtotal occlusion and WILY II flow into the distal LAD that tapers towards the apex. There is a large mid diagonal branch following the occlusion. Left circumflex?moderate caliber vessel with a moderate-sized first twos manage branch and a smaller size second appears much branch with diffuse luminal irregularities but no critical stenosis Right coronary artery?large dominant vessel with a proximal 30% stenosis and distal 40 to 50% stenosis at the bifurcation into PDA PLV, however the PDA has 2 focal 95% fibrocalcific lesions and the PDA distally wraps around the apex supplying the majority of the apex Left ventriculogram?not performed at noninvasive assessment determined LVEF around 45% Technique of the interventional procedure Anticoagulation?heparin to maintain therapeutic ACT throughout procedure time Antiplatelet therapy?pretreatment with aspirin 325 mg, clopidogrel 600 mg, and 2 boluses of Integrilin Guide catheter?XB 3.06 Japanese to the left anterior descending artery and JR4 6 Japanese to the right coronary artery Guidewire?0.04 run-through Initially we treated the LAD lesion utilizing a 2.5 x 12 mm balloon inflated at the lesion site restoring WILY-3 flow after intracoronary nitroglycerin and then we deployed a 3.5 x 18 mm drug-eluting stent from [employer] frontier by 2 inflations up to 14 angeles and postdilated with a 4.0 x 15 mm noncompliant balloon up to 12 angeles resulting in significant stepup into the stent stepdown of stented area and 0 residual stenosis however the apical LAD had evidence of distal embolization for which we advanced the guidewire distally and inflated the 2.0 mm balloon up to 1 to 2 angeles only and then intracoronary nitroglycerin and intracoronary adenosine were given restoring WILY-3 flow into the small apical LAD. The patient had mild chest pain 2 out of 10 . Then due to the chest pain and the RPDA wrapping around the entire apex, we proceeded with an intervention to the RPDA lysing the JR4 catheter, 0.014 run-through guidewire and then a 2.0 x 15 mm balloon was inflated at the 2 lesions into the PDA up to the 10 to 12 angeles with adequate expansion of the balloon then we deployed a long drug-eluting stent from [employer] frontier Taras 2.5 x 30 mm up to 14 angeles x 2 inflations and postdilated the mid part of the stent with a 2.5 mm noncompliant balloon up to 14 angeles. There was excellent angiographic result with residual stenosis WILY-3 flow. We tried to minimize the contrast utilization as well as the views and the injections to the minimum due to the advanced chronic kidney disease stage IV Conclusion #1 severe high-grade mid LAD 99% subtotal occlusion hazy appearing that underwent successful PCI of the ramus stent to 0% 0 stenosis restoring WILY-3 flow from initial WILY II flow. Final diameter of the stent 4.0 mm #2 severe high-grade to sequential lesions involving the mid RPDA that wraps around the apex of 95% stenosis underwent successful PCI of the ramus stent with residual stenosis, final diameter of the stent 2.5 mm #3 normal intracardiac filling pressures with moderate LV systolic dysfunction ejection 45% #4 mild plaquing involving the left circumflex system and distal RCA 40% stenosis at the bifurcation, proximal RCA 30% stenosis Recommendations #1 the patient will be on triple therapy due to the underlying atrial fibrillation for which baby aspirin will be given for the next 10 days, clopidogrel will be given for 6-month, and the patient will restart her anticoagulation for the underlying atrial fibrillation in 24 hours #2 adequate GI prophylaxis #3 cardiac rehabilitation program #4 intravenous hydration and closely monitor renal function #5 reassess LV systolic function by echocardiogram in the next 3 to 4 weeks #6 continue to optimize BP management
[2025-09-02 03:17] LABS: ACT Activated Clotting Time 276 sec (74-137)
[2025-09-02 03:17] LABS: ACT Activated Clotting Time 337 sec (74-137)
--- NOTE | 2025-09-02 03:39 | CRPHASE1_ITS ---
Patient Communication
--- NOTE | 2025-09-02 03:39 | CRPHASE1 ---
Patient Communication Patient Information PHII Cardiac Rehab Discussed with Patient:: Yes Guide to Cardiac Rehab Given to Patient:: Yes Cardiac Rehab Facility Choice List Given to Patient:: Yes Communication to Cardiac Rehab Choice Program [facility] CR PHII:: Communication Given to CR Choice Program Other:: Communication Given to CR Firer Low Pressure:: Fidelina Núñez Refer Phase II Cardiac Rehab:: Yes Sessions:: 36 sessions - 2 days/wk, 18 weeks Post Discharge Choice Letter Given to Patient:: Yes PHII Cardiac Rehab Referral:: [facility] Phase I Charge:: Level I - Education Medical/Surgical History Medical History IN:: Yes Angina:: Yes Hypertension:: Yes CVA/TIA: Renal:: Yes Surgical History PTCA:: Yes Ambulation Ambulation Notes:: independent Cardiac Rehabilitation Info Program Information Cardiac Rehabilitation Program Information: Cardiac Rehab The cardiac rehab team at [facility] consists of highly skilled exercise physiologists, nurses, respiratory therapists and physicians working together with you. Our purpose is to help you have a full recovery and achieve the goals you set for yourself. Over the years many of our patients have returned to activities they assumed they would never do again! We can help restore your confidence and motivation to make lifestyle changes that can have a significant impact on your health and quality of life! We can help answer questions and concerns you may have about exercise, lifestyle, medications, diet, stress and anxiety which are common following a hospitalization. WE monitor ECG and vital signs during exercise and discuss your progress with you and report to your physician(s). Cardiac Rehab is proven to help reduce readmissions, improve functional capacity and lower recurrence of problems with your heart. Our Cardiac Rehab program is Certified by the [place] [employer] Pulmonary [employer] (AACVPR) and Accredited by the [place] [employer] through our [facility]. You can contact us at . We invite you to call us with your questions or to get started in our program. If you have other questions or concerns be sure to ask your physician/provider during your follow-up visit. WE look forward to seeing you!
--- NOTE | 2025-09-02 03:41 | CRPH1.INSTRU ---
General Education Discussed with Patient CAD and cardiac anatomy and function:: Patient communicates acknowledgment and Family communicates acknowledgment Explanation of diagnoses and procedures:: Patient communicates acknowledgment and Family communicates acknowledgment Sign/Symptoms of ID:: Patient communicates acknowledgment and Family communicates acknowledgment Antiplatelet therapy: Patient communicates acknowledgment and Family communicates acknowledgment Proper use of NTG-SL: Patient communicates acknowledgment and Family communicates acknowledgment Emergency procedures and activation of EMS: Patient communicates acknowledgment and Family communicates acknowledgment Compliance of all prescribed medications: Patient communicates acknowledgment and Family communicates acknowledgment Smoking Risk Factors Patient Nicotine/Smoking Risk Factors Are:: Never smoked Response Code Nicotine/Smoking Response Code:: Not instructed Dyslipidemia Recommendations Recommendations Include:: Therapeutic Lifestyle Change dietary guidelines Response Code Dyslipidemia Response Code:: Patient communicates acknowledgment Overweight/Obesity Risk Factors Patient Overweight/Obesity Risk Factors Are:: Obesity - > or = 30 (35.9) Recommendations Recommendations Include:: Weight loss of 5-10%, Reduced calorie diet and Exercise 5-7 times/week Response Code Overweight/Obesity:: Patient communicates acknowledgment and Family communicates acknowledgment Hypertension Recommendations Recommendations Include:: Maintain BP <130/85, DASH dietary guidelines and Decrease/maintain normal body weight Response Code Hypertension:: Patient communicates acknowledgment and Family communicates acknowledgment Heart Disease Risk Factors Patient Heart Disease Risk Factors Are:: Family history of heart disease < 65 years old and Previous cardiac event Recommendations Recommendations Include:: Educated family members of their risk and Educated family members of importance of prevention of heart disease Response Code Heart Disease Response Code:: Patient communicates acknowledgment and Family communicates acknowledgment Diabetes Recommendations Recommendations Include:: Decrease/maintain body weight Response Code Diabetes:: Not instructed Metabolic Syndrome Risk Factors Patient Metabolic Syndrome Risk Factors Are [3 of 5]:: Waist circumference > 35 [female] or 40 [male] and Hypertension Recommendations Recommendations Include:: Reinforce compliance to risk factor modifications and Encouraged follow-up with Primary Care Physician Response Code Metabolic Syndrome Response Code:: Patient communicates acknowledgment Sedentary Risk Factors Patient Sedentary Risk Factors Are:: Lack of regular exercise Recommendations Recommendations Include:: Aerobic exercise 5-7 times/week for 20-30 minutes continuously, Benefits of regular exercise, Discussed home walking program and Monitored Outpatient Cardiac Rehab Response Code Sedentary Response Code:: Patient communicates acknowledgment Stress Response Code Stress Response Code:: Not instructed
[2025-09-02 04:43] LABS: Hematocrit 33.5 % (37-47); Hemoglobin 11.2 g/dL (12.0-15.0); Immature Granulocytes Count 0.160 X10^3/uL (0.0-0.0); Mean Corp Hgb Conc 33.4 g/dL (32-36); Mean Corpuscular Volume 87.9 fL (81-99); Mean Platelet Vol. 10.9 fl (6.2-12.0); NRBC Flagged by Analyzer 0 % (0-5); Platelet Count 211 K/mm3 (150-450); RBC Distribution Width CV 13.2 % (11.6-14.6); RBC Distribution Width SD 42.0 fl (35.1-43.9); Red Blood Count 3.81 M/mm3 (4.2-5.4); White Blood Count 9.5 K/mm3 (4.4-11.0)
[2025-09-02] MEDS: 0.9% Normal Saline (1000mL) 1,000 ML 100 ML IV ×2 (04:51→14:21)
[2025-09-02 05:26] LABS: AST(SGOT) 38 U/L (<=31); Alanine Aminotransfer ALT/SGPT 12 U/L (<=34); Albumin, Serum 3.7 g/dL (3.4-4.8); Alkaline Phosphatase 80 U/L (35-104); Anion Gap 13 (5-15); BUN 62 mg/dL (4-19); BUN/Creat Ratio 20.5 RATIO (10-20); Calcium,Total 8.5 mg/dL (7.6-11.0); Carbon Dioxide 19.3 mmol/L (21.0-32.0); Chloride 103 mmol/L (98-108); Estimated Creatinine Clearance 20.77 ml/min (50-250); Globulin 2.8 g/dL (2.2-4.2); Glucose 214 mg/dL (70-99); Potassium 3.8 mmol/L (3.3-5.1)
[2025-09-02 05:29] LABS: Partial Thromboplast Time > 200.0 Seconds (24.1-36.2)
[2025-09-02] MEDS: Aspirin E.C. 81 MG Tablet PO (09:00)
--- NOTE | 2025-09-02 10:00 | EKG12_ITS ---
Test Reason : POST-PCI
--- NOTE | 2025-09-02 11:30 | PCM.PROGNOTE ---
Subjective Subjective Patient seen and examined with her nurse by her bedside. She developed chest pain which radiated to her left arm and her back yesterday. EKG done was concerning for ST elevation AK so she was taken emergently to the cardiac cath where she was found to have severe high-grade mid LAD 99% subtotal occlusion and severe high-grade sequential lesions involving the mid RPDA which wraparound the apex of 95% stenosis. She had PCI of the mid LAD in the mid RPDA. She had no complaints this morning and felt well. She denied any shortness of breath, palpitations, dizziness, nausea vomiting or any other symptoms. Review of systems otherwise negative. Chest pain hemodynamically stable. Objective Data Objective Data Vital Signs: Vital Signs Temp Pulse Resp BP Pulse Ox O2 Del Method O2 Flow Rate 97.9 F 70 16 126/74 H 96 Room Air 2 09/02/25 08:00 09/02/25 08:00 09/02/25 08:00 09/02/25 08:00 09/02/25 08:00 09/02/25 08:00 09/02/25 01:32 Oxygen Flow Rate (L/min) 2 Oxygen Delivery Method Room Air Weight: 215 lb 9.793 oz Body Mass Index (BMI) 35.9 Intake & Output: Intake and Output for Last 24 Hours 08/31/25 09/01/25 09/02/25 23:59 23:59 23:59 Intake Total 456.92 / 1106.92 2075.21 / 207.21 993.86 / 993.86 Output Total 0 / 0 Balance 456.92 / 1106.92 2074. / 2074.21 993.86 / 993.86 Lab / Micro Data 09/02/25 04:32 09/02/25 04:32 Labs: Laboratory Results - last 24 hr 09/01/25 09:10: PT 17.6 H, INR 1.4 09/01/25 15:34: APTT 53.6 H 09/01/25 22:08: APTT 46.8 H 09/02/25 02:22: Activated Clotting Time 337 H 09/02/25 03:12: Activated Clotting Time 276 H 09/02/25 04:32: WBC 9.5, RBC 3.81 L, Hgb 11.2 L, Hct 33.5 L, MCV 87.9, MCH 29.4, MCHC 33.4, RDW Std Deviation 42.0, RDW Coeff of [place] 13.2, Plt Count 211, MPV 10.9, Immature Gran % (Auto) 1.700 H, Neut % (Auto) 70.1 H, Lymph % (Auto) 21.4, [place] % (Auto) 5.1, Eos % (Auto) 1.2, Baso % (Auto) 0.5, Absolute Neuts (auto) 6.7, Absolute Lymphs (auto) 2.03, Nucleated RBC % 0, APTT > 200.0 H*, Sodium Cancelled 09/02/25 04:32: Sodium 136, Potassium Cancelled 09/02/25 04:32: Potassium 3.8, Chloride Cancelled 09/02/25 04:32: Chloride 103, Carbon Dioxide Cancelled 09/02/25 04:32: Carbon Dioxide 19.3 L, Anion Gap Cancelled 09/02/25 04:32: Anion Gap 13, BUN Cancelled 09/02/25 04:32: BUN 62 H, Creatinine Cancelled 09/02/25 04:32: Creatinine 3.00 H, Estim Creat Clear Calc Cancelled 09/02/25 04:32: Estim Creat Clear Calc 20.77 L, Est GFR (MDRD) Non-Af Cancelled 09/02/25 04:32: Est GFR (MDRD) Non-Af 16 L, BUN/Creatinine Ratio Cancelled 09/02/25 04:32: BUN/Creatinine Ratio 20.5 H, Glucose Cancelled 09/02/25 04:32: Glucose 214 H, Calcium Cancelled 09/02/25 04:32: Calcium 8.5, Total Bilirubin 0.61, AST 38 H, ALT 12, Alkaline Phosphatase 80, Total Protein 6.4, Albumin 3.7, Globulin 2.8, Albumin/Globulin Ratio 1.3 Physical Exam Const alert, oriented x3, no apparent distress and well nourished General Appearance: cooperative HEENT normocephalic, head/scalp atraumatic and moist oral mucous membranes Eyes EOMs intact bilaterally Neck supple and no JVD Lymph Lymphatic: no lymphedema noted Resp normal respiratory effort, normal air movement and clear to auscultation bilaterally Cardio regular rate, regular rhythm, S1 normal heart sound, S2 normal heart sound and no murmurs GI normal to inspection, nondistended, normoactive bowel sounds, soft to palpation, non-tender and non-distended Extremity normal capillary refill, no clubbing, cyanosis or edema and no calf tenderness General Extremity: no tenderness to palpation of joints or extremities Skin General Skin Exam: no breakdown Neuro no focal motor deficits and no sensory deficits noted Motor Exam: strength 5/5 throughout and general weakness Psych thought process normal, cooperative and affect normal Appearance: appropriate Assessment & Plan Assessment/Plan (1) NSTEMI, initial episode of care: PLAN: Plan #Nonstemi admitted as a transfer from outside hospital o/a of elevated troponins troponins elevated adn third troponin was up at 349 on heparin drip as well as aspirin and high intensity statin Developed chest pain again overnight radiating to her back and her left arm. EKG was concerning for ST elevation AK so she had a cardiac cath which showed severe high-grade mid LAD 99% subtotal occlusion for which she has successful PCI. It also showed severe high-grade stenosis involving the mid RPDA which wraparound the apex and she has successful PCI of this also. On aspirin and high intensity statin as well as Plavix. On atenolol and losartan. 2D echo showed EF of 40 to 45% with anterior wall, basal mid anteroseptal and anterolateral jansen being hypokinetic and mild mitral regurgitation. #CKD stage IV patient says she has a history of Polycystic kidney disease and has been told her kidney function is 20. She follows with a senior director insight, Dr Bell, in [facility] reviewed patient and stated that patient does have CKD Creatinine today is 3. She has been gently hydrated with IV fluids at 100 cc/h to help flush out the kidneys after the cardiac catheter with contrast exposure. Creatinine was 2.94 yesterday and is up to 3.12 today. Will monitor closely and attempt gentle hydration with IV fluid. Patient has been counseled about the risk of contrast induced nephropathy, and per nephro she is to get 55cc of NS for 12 hours before and 6 hours after angiogram #History of gout: on allopurinol #Benign essential hypertension: On losartan and atenolol #Afib: xarelto on hold as she is on heparin drip #Supratherapeutic INR: resolved. INR was down to 1.4 yesterday #DVT prophylaxis: resume xarelto when ok with cardiology. Code status: full code Disposition: Anticipate to DC tomorrow the patient remains hemodynamically stable. Charges/Coding Visit Charges Inpatient E&M: 21914 Subs Hosp L2
--- NOTE | 2025-09-02 12:10 | EKG12_ITS ---
Test Reason : RHYTHM CHECK
--- NOTE | 2025-09-02 12:52 | PCM.PN.CARD ---
Subjective Subjective Briefly, patient is 70-year female admitted for NSTEMI. At approximately 12:30 AM this morning, patient developed severe cardiac chest pain radiating to the jaw, EKG showed precordial ST depression T wave inversion. Strategic Account Director activated emergently. See PCI report below, patient received stents to mid LAD and right PDA. Patient seen at bedside today. Patient is hemodynamically stable, and chest pain-free. She feels her baseline this morning. She does not have any chest pain after stenting. 14 point review system reviewed, and negative unless specified above. Objective Data Vital Signs: Vital Signs Temp Pulse Resp BP Pulse Ox O2 Del Method O2 Flow Rate 97.9 F 70 16 126/74 H 96 Room Air 2 09/02/25 08:00 09/02/25 08:00 09/02/25 08:00 09/02/25 08:00 09/02/25 08:00 09/02/25 12:26 09/02/25 01:32 Oxygen Flow Rate (L/min) 2 Oxygen Delivery Method Room Air Weight: 215 lb 9.793 oz Body Mass Index (BMI) 35.9 Intake & Output: Intake and Output for Last 24 Hours 08/31/25 09/01/25 09/02/25 23:59 23:59 23:59 Intake Total 456.92 / 1106.92 2075.21 / 2075.21 993.86 / 993.86 Output Total 0 / 0 Balance 456.92 / 1106.92 2075.21 / 2075.21 993.86 / 993.86 Lab / Micro Data 09/02/25 04:32 09/02/25 04:32 Labs: Laboratory Results - last 24 hr 09/01/25 15:34: APTT 53.6 H 09/01/25 22:08: APTT 46.8 H 09/02/25 02:22: Activated Clotting Time 337 H 09/02/25 03:12: Activated Clotting Time 276 H 09/02/25 04:32: WBC 9.5, RBC 3.81 L, Hgb 11.2 L, Hct 33.5 L, MCV 87.9, MCH 29.4, MCHC 33.4, RDW Std Deviation 42.0, RDW Coeff of Vladimir 13.2, Plt Count 211, MPV 10.9, Immature Gran % (Auto) 1.700 H, Neut % (Auto) 70.1 H, Lymph % (Auto) 21.4, [place] % (Auto) 5.1, Eos % (Auto) 1.2, Baso % (Auto) 0.5, Absolute Neuts (auto) 6.7, Absolute Lymphs (auto) 2.03, Nucleated RBC % 0, APTT > 200.0 H*, Sodium Cancelled 09/02/25 04:32: Sodium 136, Potassium Cancelled 09/02/25 04:32: Potassium 3.8, Chloride Cancelled 09/02/25 04:32: Chloride 103, Carbon Dioxide Cancelled 09/02/25 04:32: Carbon Dioxide 19.3 L, Anion Gap Cancelled 09/02/25 04:32: Anion Gap 13, BUN Cancelled 09/02/25 04:32: BUN 62 H, Creatinine Cancelled 09/02/25 04:32: Creatinine 3.00 H, Estim Creat Clear Calc Cancelled 09/02/25 04:32: Estim Creat Clear Calc 20.77 L, Est GFR (MDRD) Non-Af Cancelled 09/02/25 04:32: Est GFR (MDRD) Non-Af 16 L, BUN/Creatinine Ratio Cancelled 09/02/25 04:32: BUN/Creatinine Ratio 20.5 H, Glucose Cancelled 09/02/25 04:32: Glucose 214 H, Calcium Cancelled 09/02/25 04:32: Calcium 8.5, Total Bilirubin 0.61, AST 38 H, ALT 12, Alkaline Phosphatase 80, Total Protein 6.4, Albumin 3.7, Globulin 2.8, Albumin/Globulin Ratio 1.3 Cardiology Labs/Tests 09/01/25 15:34: APTT 53.6 H 09/01/25 22:08: APTT 46.8 H 09/02/25 04:32: WBC 9.5, RBC 3.81 L, Hgb 11.2 L, Hct 33.5 L, MCV 87.9, MCH 29.4, MCHC 33.4, Plt Count 211, MPV 10.9, Immature Gran % (Auto) 1.700 H, Neut % (Auto) 70.1 H, Lymph % (Auto) 21.4, [place] % (Auto) 5.1, Eos % (Auto) 1.2, Baso % (Auto) 0.5, Absolute Neuts (auto) 6.7, Nucleated RBC % 0, APTT > 200.0 H*, Sodium Cancelled 09/02/25 04:32: Sodium 136, Potassium Cancelled 09/02/25 04:32: Potassium 3.8, Chloride Cancelled 09/02/25 04:32: Chloride 103, Carbon Dioxide Cancelled 09/02/25 04:32: Carbon Dioxide 19.3 L, Anion Gap Cancelled 09/02/25 04:32: Anion Gap 13, BUN Cancelled 09/02/25 04:32: BUN 62 H, Creatinine Cancelled 09/02/25 04:32: Creatinine 3.00 H, Est GFR (MDRD) Non-Af Cancelled 09/02/25 04:32: Est GFR (MDRD) Non-Af 16 L, BUN/Creatinine Ratio Cancelled 09/02/25 04:32: BUN/Creatinine Ratio 20.5 H, Glucose Cancelled 09/02/25 04:32: Glucose 214 H, Calcium Cancelled 09/02/25 04:32: Calcium 8.5, Total Bilirubin 0.61 Rhythm: EKG: ECHO: Stress Test: Cardiac Cath: PCI: CT Surgery: Holter monitor: EPS: PPM: CXR: Chest CT Scan: Radiography Diagnostic Testing: PCI Cardiac Cath Report PCI Report: Procedures #1 left heart catheterization #2 coronary angiography #3 left ventricular pressure measurement #4 PCI with drug-eluting stent to mid LAD #5 PCI with drug-eluting stent to mid RPDA of the right coronary artery Indication Non-STEMI with underlying diabetes mellitus, hypertension, dyslipidemia, chronic kidney disease stage IV however we attempted adequate hydration prior to the procedure to minimize the risk of contrast-induced nephropathy but unfortunately the patient developed dynamic EKG changes and high risk features for ACS at midnight necessitating urgent coronary angiography and intervention with ongoing pain. She also has underlying atrial fibrillation for which she is on Xarelto, the latter has been held for the last 24 hours. Consent Obtained from the patient after explaining all the risks involved including but not limited to , microinfarction, CVA, bleeding and she agreed to proceed with it. Conscious sedation Was performed by a licensed practitioner under my supervision, utilizing 1 mg of Versed 50 mcg of fentanyl Hemodynamics Systemic pressure 140/90, left ventricular end diastolic pressure was measured at 7 mmHg, no pressure gradient appreciated across aortic valve Contrast used, Isovue 115 cc Radiation 788 mgy Technique of the diagnostic procedure Using modified Seldinger technique, the right radial artery was accessed with a micropuncture kit, 6 Martiniquais sheath was placed over a guidewire, 1% Xylocaine given, using JL 3.5, JR4, the diagnostic procedure was performed with both catheters engage selectively in the left main and the right coronary artery. The JR4 was utilized to cross the aortic valve into the LV cavity for pressure measurements and then pullback to document the gradient across aortic valve. Angiographic findings Left Main?large-caliber vessel and patent Left anterior descending artery?large caliber vessel proximally with a hazy appearing 99% subtotal occlusion and WILY II flow into the distal LAD that tapers towards the apex. There is a large mid diagonal branch following the occlusion. Left circumflex?moderate caliber vessel with a moderate-sized first twos manage branch and a smaller size second appears much branch with diffuse luminal irregularities but no critical stenosis Right coronary artery?large dominant vessel with a proximal 30% stenosis and distal 40 to 50% stenosis at the bifurcation into PDA PLV, however the PDA has 2 focal 95% fibrocalcific lesions and the PDA distally wraps around the apex supplying the majority of the apex Left ventriculogram?not performed at noninvasive assessment determined LVEF around 45% Technique of the interventional procedure Anticoagulation?heparin to maintain therapeutic ACT throughout procedure time Antiplatelet therapy?pretreatment with aspirin 325 mg, clopidogrel 600 mg, and 2 boluses of Integrilin Guide catheter?XB 3.06 Martin[place]ais to the left anterior descending artery and JR4 6 [place] to the right coronary artery Guidewire?0.04 run-through Initially we treated the LAD lesion utilizing a 2.5 x 12 mm balloon inflated at the lesion site restoring WILY-3 flow after intracoronary nitroglycerin and then we deployed a 3.5 x 18 mm drug-eluting stent from [employer] by 2 inflations up to 14 angeles and postdilated with a 4.0 x 15 mm noncompliant balloon up to 12 angeles resulting in significant stepup into the stent stepdown of stented area and 0 residual stenosis however the apical LAD had evidence of distal embolization for which we advanced the guidewire distally and inflated the 2.0 mm balloon up to 1 to 2 angeles only and then intracoronary nitroglycerin and intracoronary adenosine were given restoring WILY-3 flow into the small apical LAD. The patient had mild chest pain 2 out of 10 . Then due to the chest pain and the RPDA wrapping around the entire apex, we proceeded with an intervention to the RPDA lysing the JR4 catheter, 0.014 run-through guidewire and then a 2.0 x 15 mm balloon was inflated at the 2 lesions into the PDA up to the 10 to 12 angeles with adequate expansion of the balloon then we deployed a long drug-eluting stent from [employer] [place] 2.5 x 30 mm up to 14 angeles x 2 inflations and postdilated the mid part of the stent with a 2.5 mm noncompliant balloon up to 14 angeles. There was excellent angiographic result with residual stenosis WILY-3 flow. We tried to minimize the contrast utilization as well as the views and the injections to the minimum due to the advanced chronic kidney disease stage IV Conclusion #1 severe high-grade mid LAD 99% subtotal occlusion hazy appearing that underwent successful PCI of the ramus stent to 0% 0 stenosis restoring WILY-3 flow from initial WILY II flow. Final diameter of the stent 4.0 mm #2 severe high-grade to sequential lesions involving the mid RPDA that wraps around the apex of 95% stenosis underwent successful PCI of the ramus stent with residual stenosis, final diameter of the stent 2.5 mm #3 normal intracardiac filling pressures with moderate LV systolic dysfunction ejection 45% #4 mild plaquing involving the left circumflex system and distal RCA 40% stenosis at the bifurcation, proximal RCA 30% stenosis Recommendations #1 the patient will be on triple therapy due to the underlying atrial fibrillation for which baby aspirin will be given for the next 10 days, clopidogrel will be given for 6-month, and the patient will restart her anticoagulation for the underlying atrial fibrillation in 24 hours #2 adequate GI prophylaxis #3 cardiac rehabilitation program #4 intravenous hydration and closely monitor renal function #5 reassess LV systolic function by echocardiogram in the next 3 to 4 weeks #6 continue to optimize BP management Physical Exam Narrative Gen: A&Ox3, NAD ?HEENT: Normocephalic/Atraumatic, MMM ?Neck: Supple, no JVD ?Pulm: Normal work of breathing, CTA bilaterally with no wheezes or crackles ?CV: IRIR, normal S1/S2, no m/r/g ?Abd: Soft, NT/ND ?Extr: Warm to touch, no LE edema, distal pulses intact and symmetric in upper and lower extremities ?Neuro: No gross focal deficits, normal speech ?Psych: Normal affect, answers questions appropriately Assessment & Plan Assessment/Plan (1) NSTEMI, initial episode of care: PLAN: - Type 1 NSTEMI: Patient with cardiac chest pain, HST: 78-->200-->349, ECG with ST depressions and T wave inversions -Echocardiogram with EF: 40 to 45%, anterior hypokinesis. - Patient developed cardiac chest pain and ischemic ST and T wave changes overnight, prompting emergent Strategic Account Director activation. Patient is status post PCI with drug-eluting stent to culprit mid LAD and mid RPDA of the right coronary artery Plan -Continue IV hydration until tomorrow morning -Continue aspirin 81 mg daily and Plavix 75 mg daily -Start therapeutic Eliquis 5 mg twice daily tomorrow morning -Triple therapy to be continued 10 days from tomorrow; aspirin will be stopped after 10 days. Please only discharge patient with corresponding number of days of aspirin 81 mg daily. Patient will then continue dual therapy with Plavix 75 mg daily and Eliquis 5 mg twice daily for 12 months, followed by Eliquis monotherapy thereafter if no contraindications. - Crestor 20 mg daily if no contraindications -Continue Protonix 40 mg daily indefinitely - Continue previously prescribed atenolol 25 mg daily and losartan 50 mg daily; can restart home hydrochlorothiazide 25 mg tomorrow if blood pressure is acceptable. - Cardiac rehabilitation referral placed - Please have patient follow within 10 days of discharge with Dr. Fuentes in cardiology clinic (2) Afib: PLAN: - [id number]: ~6, suspect at least persistent atrial fibrillation - Currently on rate control-strategy with atenolol 25 mg daily and Xarelto 15 mg daily --Patient is hemodynamically stable, asymptomatic, and rate controlled Plan - Continue atenolol and Eliquis as assessment above (3) Polycystic kidney disease: PLAN: - Creatinine currently ~3; patient at bedside is aware of her chronic CKD, and the risks associated with contrast - Avoid additional nephrotoxic agents - IV hydration as above (4) Hypertension: PLAN: - Plan as above, goal less than 130/80 on discharge (5) Elevated INR: PLAN: - Etiology unclear at this time, hepatic workup per primary team - Patient has tolerated Xarelto therapy, she denies significant bleeding history
[2025-09-03] MEDS: 0.9% Normal Saline (1000mL) 1,000 ML 100 ML IV (00:21)
[2025-09-03 04:05] VITALS: BP 116/48; PULSE 77; RESP 16; TEMP 36.4; O2SAT 100
[2025-09-03 06:31] VITALS: O2SAT 94
[2025-09-03 06:40] LABS: Hematocrit 28.9 % (37-47); Hemoglobin 10.0 g/dL (12.0-15.0); Immature Granulocytes Count 0.020 X10^3/uL (0.0-0.0); Mean Corp Hgb Conc 34.6 g/dL (32-36); Mean Corpuscular Volume 87.8 fL (81-99); Mean Platelet Vol. 10.8 fl (6.2-12.0); NRBC Flagged by Analyzer 0 % (0-5); Platelet Count 157 K/mm3 (150-450); RBC Distribution Width CV 13.5 % (11.6-14.6); RBC Distribution Width SD 42.3 fl (35.1-43.9); Red Blood Count 3.29 M/mm3 (4.2-5.4); White Blood Count 6.4 K/mm3 (4.4-11.0)
[2025-09-03 07:03] LABS: Anion Gap 11 (5-15); BUN 48 mg/dL (4-19); BUN/Creat Ratio 18.0 RATIO (10-20); Calcium,Total 8.5 mg/dL (7.6-11.0); Carbon Dioxide 19.1 mmol/L (21.0-32.0); Chloride 110 mmol/L (98-108); Estimated Creatinine Clearance 23.43 ml/min (50-250); Glucose 110 mg/dL (70-99); Potassium 3.8 mmol/L (3.3-5.1)
--- NOTE | 2025-09-03 08:44 | PCM.PN.CARD ---
Subjective Subjective Patient resting comfortably in bed denies any anginal type symptoms. She has been up and back and forth to the bathroom without restrictions. Objective Data Vital Signs: Vital Signs Temp Pulse Resp BP Pulse Ox O2 Del Method O2 Flow Rate 97.6 F L 77 16 116/48 L 100 Room Air 2 09/03/25 04:05 09/03/25 04:05 09/03/25 04:05 09/03/25 04:05 09/03/25 04:05 09/03/25 04:05 09/02/25 01:32 Oxygen Flow Rate (L/min) 2 Oxygen Delivery Method Room Air Weight: 215 lb 9.793 oz Body Mass Index (BMI) 35.9 Intake & Output: Intake and Output for Last 24 Hours 09/01/25 09/02/25 09/03/25 23:59 23:59 23:59 Intake Total 2074.21 / 2074.21 3443.86 / 3803.86 1360 / 1360 Balance 2074.21 / 2074.21 3443.86 / 3803.86 1360 / 1360 Lab / Micro Data Attestation: I reviewed the patient's lab results. 09/03/25 06:29 09/03/25 06:29 Labs: Laboratory Results - last 24 hr 09/03/25 06:29: WBC 6.4, RBC 3.29 L, Hgb 10.0 L, Hct 28.9 L, MCV 87.8, MCH 30.4, MCHC 34.6, RDW Std Deviation 42.3, RDW Coeff of Vladimir 13.5, Plt Count 157, MPV 10.8, Immature Gran % (Auto) 0.300, Neut % (Auto) 60.8, Lymph % (Auto) 29.1, Grainger % (Auto) 6.9, Eos % (Auto) 2.3, Baso % (Auto) 0.6, Absolute Neuts (auto) 3.9, Absolute Lymphs (auto) 1.86, Nucleated RBC % 0, Sodium 140, Potassium 3.8, Chloride 110 H, Carbon Dioxide 19.1 L, Anion Gap 11, BUN 48 H, Creatinine 2.66 H, Estim Creat Clear Calc 23.43 L, Est GFR (MDRD) Non-Af 19 L, BUN/Creatinine Ratio 18.0, Glucose 110 H, Calcium 8.5 Rhythm Strip Rhythm Strip: A-fib Rate: 65 Cardiology Labs/Tests 09/03/25 06:29: WBC 6.4, RBC 3.29 L, Hgb 10.0 L, Hct 28.9 L, MCV 87.8, MCH 30.4, MCHC 34.6, Plt Count 157, MPV 10.8, Immature Gran % (Auto) 0.300, Neut % (Auto) 60.8, Lymph % (Auto) 29.1, Grainger % (Auto) 6.9, Eos % (Auto) 2.3, Baso % (Auto) 0.6, Absolute Neuts (auto) 3.9, Nucleated RBC % 0, Sodium 140, Potassium 3.8, Chloride 110 H, Carbon Dioxide 19.1 L, Anion Gap 11, BUN 48 H, Creatinine 2.66 H, Est GFR (MDRD) Non-Af 19 L, BUN/Creatinine Ratio 18.0, Glucose 110 H, Calcium 8.5 Rhythm: EKG: ECHO: Stress Test: Cardiac Cath: PCI: CT Surgery: Holter monitor: EPS: PPM: CXR: Chest CT Scan: Physical Exam Const alert and oriented x3 HEENT normocephalic Eyes EOMs intact bilaterally Neck no JVD Chest inspection of chest normal Resp normal respiratory effort Cardio Cardio Narrative: Distant heart tones due to body habitus Rate: regular rate Rhythm: abnormal rhythm irregularly irregular Heart Sounds: S1 normal and S2 normal; Negative for click, gallop or murmur GI GI Narrative: Obese Extremity no pedal edema Neuro Neuro Narrative: Alert and oriented x 3 Psych mental status grossly normal Assessment & Plan Assessment/Plan (1) Non-STEMI (non-ST elevated myocardial infarction): PLAN: Patient is tolerating triple drug therapy for non-STEMI and atrial fibrillation. She will be placed on Eliquis 5 mg twice daily given her age and weight. Her creatinine is 2.66 which is improving. It is felt that Eliquis in combination with Plavix and aspirin would have a better safety profile in her given situation than using Xarelto. The patient will be maintained on Eliquis and Plavix for at least 6 months and Eliquis Plavix and aspirin for the next 10 days. The patient will follow-up in the [facility] office in 7-10 days. (2) Afib: QUALIFIERS: Atrial fibrillation type: persistent (not longstanding) Qualified Code(s): I48.19 - Other persistent atrial fibrillation PLAN: Appears to be persistent and longstanding. She will remain on oral anticoagulation therapy in combination with dual antiplatelet therapy for 10 days and then Eliquis and Plavix. This was discussed with the patient in detail. (3) Polycystic kidney disease: PLAN: Creatinine is improving from 3.0 down to 2.66 with hydration yesterday. (4) Hypertension: QUALIFIERS: Hypertension type: primary hypertension Qualified Code(s): I10 - Essential (primary) hypertension PLAN: Blood pressure is well-controlled on her current meds it 116/48 this morning. Patient will continue the current medications and follow-up as above. PLAN: Plan 1. Start Eliquis 5 mg twice daily. 2. Continue Plavix and aspirin with Eliquis for 10 days. 3. Will stop aspirin after 10 days and continue Eliquis and Plavix for a minimum of 6 months and preferably 1 year. 4. Patient will need to follow-up with Dr. Felipe Fuentes in the [facility] office in 7-10 days. 5. From a cardiovascular standpoint the patient could be discharged to home. Charges/Coding Visit Charges Inpatient E&M: 01485 Subs Hosp L2
[2025-09-03 09:13] VITALS: BP 129/58; PULSE 72; RESP 16; TEMP 36.8; O2SAT 97
[2025-09-03] MEDS: Aspirin E.C. 81 MG Tablet PO (09:23)
[2025-09-03] MEDS: APIXABAN 5 MG TABLET PO (09:46)
--- NOTE | 2025-09-03 10:00 | EKG12_ITS ---
Test Reason : POST PCI
--- NOTE | 2025-09-03 11:29 | DCINST_ITS ---
Discharge Instructions
--- NOTE | 2025-09-03 11:29 | PCM.DC.SUM ---
Providers Date of Admission: 08/31/25 Date of Discharge: 09/03/25 Primary Care Physician: Dr. Bianca Ortiz MD Consultations 08/31/25 01:48 Consult: Cardiology Routine Consulting Provider: Carlos Fuentes Reason for Consult: NSTEMI EMERGENT Consult: No Notified: Yes Date Notified: 08/31/25 Time Notified: 00:59 Method of Notification: Verbal 08/31/25 08:59 Consult: Nephrology Routine Consulting Provider: Erik Almanza Reason for Consult: elevated Cr. ?CKD EMERGENT Consult: No Notified: Yes Date Notified: 08/31/25 Time Notified: 08:59 Method of Notification: Text Reason For Visit: NSTEMI Diagnosis Discharge Diagnosis (1) Non-STEMI (non-ST elevated myocardial infarction): Status: Acute Code(s): I21.4 - Non-ST elevation (NSTEMI) myocardial infarction (2) Afib: Status: Acute Code(s): I48.91 - Unspecified atrial fibrillation Qualifiers: Atrial fibrillation type: persistent (not longstanding) Qualified Code(s): I48.19 - Other persistent atrial fibrillation (3) Polycystic kidney disease: Status: Acute Code(s): Q61.3 - Polycystic kidney, unspecified (4) Hypertension: Status: Chronic Code(s): I10 - Essential (primary) hypertension Qualifiers: Hypertension type: primary hypertension Qualified Code(s): I10 - Essential (primary) hypertension Plan #Nonstemi admitted as a transfer from outside hospital o/a of elevated troponins troponins elevated adn third troponin was up at 349 on heparin drip as well as aspirin and high intensity statin Developed chest pain again overnight radiating to her back and her left arm. EKG was concerning for ST elevation MS so she had a cardiac cath which showed severe high-grade mid LAD 99% subtotal occlusion for which she has successful PCI. It also showed severe high-grade stenosis involving the mid RPDA which wraparound the apex and she has successful PCI of this also. On aspirin and high intensity statin as well as Plavix. On atenolol and losartan. 2D echo showed EF of 40 to 45% with anterior wall, basal mid anteroseptal and anterolateral jansen being hypokinetic and mild mitral regurgitation. #CKD stage IV patient says she has a history of Polycystic kidney disease and has been told her kidney function is 20. She follows with a staff weapons officer, Dr Bell, in [place] [facility] reviewed patient and stated that patient does have CKD Creatinine today is 3. She has been gently hydrated with IV fluids at 100 cc/h to help flush out the kidneys after the cardiac catheter with contrast exposure. Creatinine was 2.94 yesterday and is up to 3.12 today. Will monitor closely and attempt gentle hydration with IV fluid. Patient has been counseled about the risk of contrast induced nephropathy, and per nephro she is to get 55cc of NS for 12 hours before and 6 hours after angiogram #History of gout: on allopurinol #Benign essential hypertension: On losartan and atenolol #Afib: xarelto on hold as she is on heparin drip #Supratherapeutic INR: resolved. INR was down to 1.4 yesterday #DVT prophylaxis: resume xarelto when ok with cardiology. Code status: full code Disposition: Anticipate to DC tomorrow the patient remains hemodynamically stable. Medications at Discharge Home Medications Bacillus coagulans 250 million cell chewable tablet (Digestive Advantage Probiotic Gummy) 2 tab PO .Q24 02/21/24 allopurinol 100 mg tablet 100 mg PO QDAY 02/21/24 cranberry 500 mg capsule 500 mg PO DAILY 02/21/24 losartan 100 mg tablet 50 mg PO QDAY 02/21/24 atenolol 25 mg tablet 25 mg PO Q24H 08/30/25 apixaban 5 mg tablet (Eliquis) 5 mg PO BID #60 tabs 09/03/25 aspirin 81 mg tablet,delayed release 81 mg PO BREAKFAST #10 tabs 09/03/25 clopidogrel 75 mg tablet 75 mg PO DAILY #30 tabs 09/03/25 pantoprazole 40 mg tablet,delayed release 40 mg PO DAILY #30 tabs 09/03/25 Hospital Course Operations None Procedures 2-D Echocardiogram and Cardiac catheterization Summary of Care Provided Minutes Spent on Discharge: 45 Hospital Course: Patient is a 70-year-old female with past medical history as outlined who was admitted as a transfer from outside hospital with a complaint of chest pain. Chest pain was exertional and radiated to her jaw. Chest pain has been going on for about 2 months and was intermittent but became much more constant about a month prior to admission. Usually the chest pain would get better with rest but this time it did not get better with resting and so she decided to go to the outside hospital from where she was transferred here. EKG showed no acute ST changes and showed evidence of A-fib. She was supposed to be on Xarelto. Initial troponin was elevated at the outside hospital and when she came to our facility the third troponin check was 349. She was admitted and managed for non-STEMI. She was placed on heparin drip and cardiology was consulted. Xarelto was held. Patient's creatinine was elevated and there was concern about HELGA versus CKD. However patient says she had known CKD due to polycystic kidney disease and had been following with her staff weapons officer in [place]. Nephrology was consulted per cardiology request and patient was felt to be at her baseline from prior outside records checked by nephrology. Plan was for patient to have cardiac cath on 09/03/2025. However patient developed acute chest pain again in the early hours of 09/02/2025. EKG done was concerning for ST elevation MS so STEMI alert was called and she had emergent cardiac cath which showed severe high-grade mid LAD 99% subtotal occlusion for which she has successful PCI. It also showed severe high-grade stenosis involving the mid RPDA which wraparound the apex and she had successful PCI of this also. She was hydrated after the cardiac cath. Creatinine trended up to 2.66. She remained stable and was discharged home on 09/03/2025. She was discharged on aspirin which she was to take for 10 days. She was to also be on Plavix and Eliquis for her A-fib. Her Xarelto was discontinued and she was switched to Eliquis. Of note during the admission she did have a 2D echo which showed EF of 40 to 45% which was variable in the setting of atrial fibrillation and regional wall motion abnormalities present in the region of the LAD with anterior wall, basal mid anteroseptal and anterolateral jansen being hypokinetic. She remained stable and was discharged home on 09/03/2025. She is follow-up with her PCP and verifier operator as well as her staff weapons officer within 1 to 2 weeks. Patient seen and examined prior to discharge. She felt well and had no active complaints. She had an uneventful night. Review of systems otherwise negative. Labs and vitals reviewed. Home medication reviewed and reconciled. Physical Exam Const alert, oriented x3, no apparent distress and well nourished General Appearance: cooperative and comfortable HEENT normocephalic, head/scalp atraumatic, hearing grossly normal bilaterally and moist oral mucous membranes Mouth: oral and palatal mucosa normal Eyes EOMs intact bilaterally Neck supple and no JVD Lymph Lymphatic: no lymphedema noted Resp normal respiratory effort, normal air movement and clear to auscultation bilaterally Cardio regular rate, regular rhythm, S1 normal heart sound, S2 normal heart sound and no murmurs GI normal to inspection, nondistended, normoactive bowel sounds, soft to palpation, non-tender and non-distended Extremity normal capillary refill, no clubbing, cyanosis or edema and no calf tenderness General Extremity: no tenderness to palpation of joints or extremities Skin General Skin Exam: no breakdown Neuro oriented x3, CN's II-XII intact bilaterally, moves all extremities, no focal motor deficits and no sensory deficits noted Sensorium / Orientation: awake and oriented to person Motor Exam: strength 5/5 throughout and general weakness Psych thought process normal, cooperative and affect normal Appearance: appropriate Weight / BMI Weight Weight: 215 lb 9.793 oz Body Mass Index (BMI) 35.9 ABG / Lab / Microbiology Data 09/03/25 06:29 09/03/25 06:29 Laboratory: Laboratory Results - last 24 hr 09/03/25 06:29: WBC 6.4, RBC 3.29 L, Hgb 10.0 L, Hct 28.9 L, MCV 87.8, MCH 30.4, MCHC 34.6, RDW Std Deviation 42.3, RDW Coeff of Vladimir 13.5, Plt Count 157, MPV 10.8, Immature Gran % (Auto) 0.300, Neut % (Auto) 60.8, Lymph % (Auto) 29.1, Kerr % (Auto) 6.9, Eos % (Auto) 2.3, Baso % (Auto) 0.6, Absolute Neuts (auto) 3.9, Absolute Lymphs (auto) 1.86, Nucleated RBC % 0, Sodium 140, Potassium 3.8, Chloride 110 H, Carbon Dioxide 19.1 L, Anion Gap 11, BUN 48 H, Creatinine 2.66 H, Estim Creat Clear Calc 23.43 L, Est GFR (MDRD) Non-Af 19 L, BUN/Creatinine Ratio 18.0, Glucose 110 H, Calcium 8.5 D/C Instructions Discharge Activity: Return to Normal Activity Weight Bearing Status: Weight bearing as tolerated Call your doctor if you observe: Fever of 101 or Higher, Shortness of breath, Dizziness, Swelling in the ankles and Chest pain DC O2, CPAP, BIPAP Needs Home O2 Discharge instructions: No DC home with Oxygen: No Meaningful Use Info Meaningful Use Meaningful Use Diagnoses (Choose all that apply): AMI AMI/Post PCI/Angioplasty Aspirin given w/in 24hrs of arrival?: Yes ASA at discharge?: Yes Antiplatelet Therapy at Discharge:: Yes Statins at discharge?: Yes Alan/ARB at discharge?: Yes Beta Silviano at discharge?: Yes Done w/ Acute MS measure.: Yes Discharge Plan Admission Admit Date/Time: 08/31/25 00:57 Primary Reason for Your Visit: STEMI Attending Provider: Destiny Sutton Primary Care Provider: Bianca Ortiz Consulting Providers: Carlos Fuentes; Amaury Madsen; Erik Almanza Instructions Patient Instructions: Heart Attack Dc Discharge Orders/Prescriptions Prescriptions: New aspirin 81 mg Tablet,Delayed Release (Dr/Ec) 81 mg PO BREAKFAST Qty: 10 0RF clopidogrel 75 mg Tablet 75 mg PO DAILY Qty: 30 2RF pantoprazole 40 mg Tablet,Delayed Release (Dr/Ec) 40 mg PO DAILY Qty: 30 2RF Eliquis 5 mg Tablet 5 mg PO BID Qty: 60 2RF Continued allopurinol 100 mg tablet 100 mg PO QDAY losartan 100 mg tablet 50 mg PO QDAY Digestive Advantage Prob Gummy 250 million cell tablet,chewable 2 tab PO .Q24 cranberry 500 mg capsule 500 mg PO DAILY Patient Comments: 5 chewable tablets at night Rx Instructions: administer with meals 5 chewable tablets at night atenolol 25 mg tablet 25 mg PO Q24H Discontinued aspirin 81 mg tablet 81 mg PO DAILY hydrochlorothiazide 25 mg tablet 25 mg PO QDAY Xarelto 15 mg tablet 15 mg PO DAILY Rx Instructions: must administer with evening meal Referrals / Follow Up: Carlos Fuentes DO [Med Staff - Active Staff, Cardiology] - Within 2 Weeks Erik Almanza MD [Med Staff - Consulting, Nephrology] - Within 2 Weeks Bianca Ortiz MD [Primary Care Provider, Internal Medicine] - Within 1 Week Disposition Disposition (needs filled in before D/C Order can be placed): Home, Self Care Charges/Coding Visit Charges Inpatient E&M: 32522 Disch Hosp >30min
--- NOTE | 2025-09-03 11:53 | CASEMGMT ---
Patient has order for discharge. Patient is discharging on JYOTI Cooper CM called [facility] and copay is $31.75. RN CM in to update patient regarding copay. Patient voiced appreciation. Patient denied needs or help at discharge. Patient had no further questions or concerns.
--- NOTE | 2025-09-03 13:33 | PHA.DC_ITS ---
Pharmacy DC Med Rec Counseling
--- NOTE | 2025-09-03 13:33 | PHA.DC.MC.R ---
Pharmacy [facility] Counseling Pharmacy Service has performed discharge medication reconciliation and counseling for this patient. 1. clopidogrel 75mg po daily 2. pantoprazole 40mg PO daily 3. apixaban 5mg po bid The patient's discharge medication list was reviewed for discrepancies and discrepancies were resolved. The patient was counseled on the following discharge medications and changes in medications for homegoing were reviewed. The Reason for Use, instructions for use, and potential side effects were reviewed for all new medications. The patient's questions regarding all of their medications were answered. The patient was able to verbally demonstrate an understanding of their discharge medications. Patient counseled by pharmacy clinical coordinatorSaman. Medications at Discharge Home Medications Bacillus coagulans 250 million cell chewable tablet (Digestive Advantage Probiotic Gummy) 2 tab PO .Q24 02/21/24 allopurinol 100 mg tablet 100 mg PO QDAY 02/21/24 cranberry 500 mg capsule 500 mg PO DAILY 02/21/24 losartan 100 mg tablet 50 mg PO QDAY 02/21/24 atenolol 25 mg tablet 25 mg PO Q24H 08/30/25 apixaban 5 mg tablet (Eliquis) 5 mg PO BID #60 tabs 09/03/25 aspirin 81 mg tablet,delayed release 81 mg PO BREAKFAST #10 tabs 09/03/25 clopidogrel 75 mg tablet 75 mg PO DAILY #30 tabs 09/03/25 pantoprazole 40 mg tablet,delayed release 40 mg PO DAILY #30 tabs 09/03/25
== END 2025-09-03 13:57 | disposition home or self-care (01) | DRG 322 ==
PROVIDERS: Internal Medicine; Internal Medicine Cardiovascular Disease; Admitting Provider Family Medicine; PCP Student in an Organized Health Care Education/Training Program; Visit Provider Student in an Organized Health Care Education/Training Program
DX: I21.4 Non-ST elevation (NSTEMI) myocardial infarction (principal); N18.4 Chronic kidney disease, stage 4 (severe); I48.19 Other persistent atrial fibrillation; Q61.3 Polycystic kidney, unspecified; E11.22 Type 2 diabetes mellitus with diabetic chronic kidney disease; I12.9 Hypertensive chronic kidney disease with stage 1 through stage 4 chronic kidney disease, or unspecified chronic kidney disease; R79.1 Abnormal coagulation profile; Z79.01 Long term (current) use of anticoagulants; Z79.02 Long term (current) use of antithrombotics/antiplatelets; Z79.82 Long term (current) use of aspirin; Z79.899 Other long term (current) drug therapy; Z86.73 Personal history of transient ischemic attack (TIA), and cerebral infarction without residual deficits
CPT/HCPCS: 36415; 80048; 80053; 84484; 85025; 85347; 85610; 85730; 92928; 93005; 93306; 93458; 99152; 99153; C1887; Q9967; C1725; C1769; C1874; C1894; C9600; J0153; J1327